=== PATIENT | male | born 1980 | race Two or more races ===

== ENCOUNTER 2016-12-20 07:40 | Emergency (ER) | payer MEDICAID ==
[2016-12-20 07:46] VITALS: TEMP 97.3
[2016-12-20] MEDS ORDERED: PROMETHAZINE HCL 25 MG/ML INJ IVP ONE (07:52)
[2016-12-20] MEDS ORDERED: NS 1,000 ML IV ONE (07:52)
[2016-12-20] MEDS ORDERED: HYDROmorphONE/DILAUDID 1 MG/ML SYR IVP ONE (07:52)
--- NOTE | 2016-12-20 07:55 | EDPHY ---
H & P Stated Complaint: N/V since early AM. LUQ pain Time Seen by Provider: 12/20/16 07:47 HPI/ROS: CHIEF COMPLAINT: Acute exacerbation of chronic cyclic vomiting syndrome HISTORY OF PRESENT ILLNESS: The patient presents to the ED after he developed an acute exacerbation of chronic cyclic vomiting. The patient has been struggling with this condition for years. He reportedly has had an extensive GI workup in the past. The patient does report to me a history of heavy recreational marijuana use. The patient reports that he has abstain from using marijuana for years at a time in the past and not appreciated a significant decline in his symptoms of cyclic vomiting. The patient denies any fever, melena, upper respiratory symptoms or additional acute complaints. The patient takes no regular [id number] medications. The patient reports his symptoms are moderate to severe in nature. REVIEW OF SYSTEMS: A comprehensive 10 point review of systems is otherwise negative aside from elements mentioned in the history of present illness. Source: Patient Exam Limitations: No limitations - Personal History Current Tetanus/Diphtheria Vaccine: Yes Current Tetanus Diphtheria and Acellular Pertussis (TDAP): Yes Tetanus Vaccine Date: < 10 YEARS - Medical/Surgical History Hx Asthma: No Hx Chronic Respiratory Disease: No Hx Diabetes: No Hx Cardiac Disease: No Hx Renal Disease: No Hx Cirrhosis: No Hx Alcoholism: No Hx HIV/AIDS: No Hx Splenectomy or Spleen Trauma: No Other PMH: pmh: denies. psh: rhinoplasty - Social History Smoking Status: Current some day smoker - Physical Exam Exam: General Appearance: Alert, diaphoretic, mild distress secondary to retching Eyes: Pupils equal and round no pallor or injection ENT, Mouth: Mucous membranes moist Respiratory: There are no retractions, lungs are clear to auscultation Cardiovascular: Regular rate and rhythm Gastrointestinal: Minimal epigastric tenderness, no peritoneal signs Neurological: A&O, normal motor function, normal sensory exam, normal cranial nerves Skin: Warm and dry, no rashes Musculoskeletal: Neck is supple nontender Extremities: symmetrical, full range of motion Psychiatric: Patient is oriented X 3, there is no agitation Constitutional: Initial Vital Signs Temperature (C) 36.3 C 12/20/16 07:43 Heart Rate 63 12/20/16 07:43 Respiratory Rate 17 12/20/16 07:43 Blood Pressure 140/88 H 12/20/16 07:43 O2 Sat (%) 99 12/20/16 07:43 O2 Delivery Mode Room Air Allergies/Adverse Reactions: No Known Allergies Allergy (Unverified 08/17/16 07:20) Home Medications: Medication Instructions Recorded Ondansetron Odt [Zofran Odt] 4 mg PO Q4PRN PRN #20 tab 12/20/16 Medical Decision Making ED Course/Re-evaluation: The patient had an IV established. He received a L of normal saline. He received 1 mg of IV Dilaudid and 12.5 mg of IV Phenergan. The patient received IV fluid rehydration for active vomiting and volume depletion I reviewed the patient's past medical records including his 3 ED visits from August. I re-evaluated the patient at 9:00 a.m. he reports his symptoms have markedly improved. He is no longer vomiting. His abdominal examination remains benign. His laboratories studies are reviewed and I appreciate no significant abnormalities. The patient is comfortable being discharged home with a prescription for Zofran. Differential Diagnosis: Differential diagnosis considered includes acute abdominal pain, cyclic vomiting syndrome, dehydration, metabolic abnormality - Data Points Laboratory Results: Laboratory Results 12/20/16 08:00 12/20/16 08:00 12/20/16 12/20/16 08:00 08:00 WBC 10.04 10^3/uL H 10^3/uL (3.80-9.50) RBC 5.40 10^6/uL 10^6/uL (4.40-6.38) Hgb 17.1 g/dL g/dL (13.7-17.5) Hct 48.9 % % (40.0-51.0) MCV 90.6 fL fL (81.5-99.8) MCH 31.7 pg pg (27.9-34.1) MCHC 35.0 g/dL g/dL (32.4-36.7) RDW 12.3 % % (11.5-15.2) Plt Count 281 10^3/uL 10^3/uL (150-400) MPV 11.3 fL fL (8.7-11.7) Neut % (Auto) 65.6 % % (39.3-74.2) Lymph % (Auto) 23.1 % % (15.0-45.0) [place] % (Auto) 5.4 % % (4.5-13.0) Eos % (Auto) 4.3 % % (0.6-7.6) Baso % (Auto) 1.2 % % (0.3-1.7) Nucleat RBC Rel Count 0.0 % % (0.0-0.2) Absolute Neuts (auto) 6.59 10^3/uL H 10^3/uL (1.70-6.50) Absolute Lymphs (auto) 2.32 10^3/uL 10^3/uL (1.00-3.00) Absolute Monos (auto) 0.54 10^3/uL 10^3/uL (0.30-0.80) Absolute Eos (auto) 0.43 10^3/uL H 10^3/uL (0.03-0.40) Absolute Basos (auto) 0.12 10^3/uL H 10^3/uL (0.02-0.10) Absolute Nucleated RBC 0.00 10^3/uL 10^3/uL (0-0.01) Immature Gran % 0.4 % % (0.0-1.1) Immature Gran # 0.04 10^3/uL 10^3/uL (0.00-0.10) Sodium 142 mEq/L mEq/L (134-144) Potassium 5.2 mEq/L mEq/L (3.5-5.2) Chloride 107 mEq/L mEq/L (97-110) Carbon Dioxide 20 mEq/l L mEq/l (22-31) Anion Gap 15 mEq/L mEq/L (8-16) BUN 18 mg/dL mg/dL (7-23) Creatinine 1.1 mg/dL mg/dL (0.7-1.3) Estimated GFR > 60 Glucose 112 mg/dL H mg/dL (70-100) Calcium 10.6 mg/dL H mg/dL (8.5-10.4) Lipase 302.0 IU/L H IU/L (23-300) Medications Given: Discontinued Medications Hydromorphone HCl (Dilaudid) 1 mg IVP EDNOW ONE Stop: 12/20/16 07:53 Last Admin: 12/20/16 08:03 Dose: 1 mg Sodium Chloride (Ns) 1,000 mls @ 0 mls/hr IV ONCE ONE PRN Reason: Wide Open Stop: 12/20/16 07:53 Last Admin: 12/20/16 08:03 Dose: 1,000 mls Promethazine HCl (Phenergan) 12.5 mg IVP EDNOW ONE Stop: 12/20/16 07:53 Last Admin: 12/20/16 08:10 Dose: Not Given Departure - Departure Disposition: Home, Routine, Self-Care Clinical Impression: Cyclic vomiting syndrome Condition: Good Instructions: Acute Nausea and Vomiting (ED) Additional Instructions: 1. Please return to the ED for worsening symptoms, severe pain the other concerns. 2. Please use Zofran as needed for nausea. Referrals: HEIDY MARQUEZ [Other] - As per Instructions
[2016-12-20 08:05] LABS: % IMMATURE GRANULYOCYTES 0.4 % (0.0-1.1); ABSOLUTE IMMATURE GRANULOCYTES 0.04 10^3/uL (0.00-0.10); ADD DIFF? NO; ADD MORPH? NO; ADD SCAN? NO; ATYPICAL LYMPHOCYTE FLAG 0 (0-99); FRAGMENT RBC FLAG 0 (0-99); HEMATOCRIT 48.9 % (40.0-51.0); HEMOGLOBIN 17.1 g/dL (13.7-17.5); LEFT SHIFT FLG 0 (0-99); LIPEMIA HEMOLYSIS FLAG 90 (0-99); MEAN CELL HEMOGLOBIN 31.7 pg (27.9-34.1); MEAN CELL VOLUME 90.6 fL (81.5-99.8); MEAN PLATELET VOLUME 11.3 fL (8.7-11.7); PLATELET CLUMPS FLAG 0 (0-99); PLATELET COUNT 281 10^3/uL (150-400); RED CELL DISTRIBUTION WIDTH 12.3 % (11.5-15.2)
[2016-12-20 08:25] LABS: ANION GAP 15 mEq/L (8-16); CALCIUM 10.6 mg/dL (8.5-10.4); CARBON DIOXIDE 20 mEq/l (22-31); CHLORIDE 107 mEq/L (97-110); CREATININE 1.1 mg/dL (0.7-1.3); GLOMERULAR FILTRATION RATE > 60; GLUCOSE 112 mg/dL (70-100); POTASSIUM 5.2 mEq/L (3.5-5.2); SODIUM 142 mEq/L (134-144)
[2016-12-20 08:39] VITALS: RESP 14
[2016-12-20 09:25] VITALS: BP 120/75; PULSE 74; O2SAT 98
== END 2016-12-20 09:24 | disposition home or self-care (01) ==
DX: G43.A0 Cyclical vomiting, in migraine, not intractable (principal); F17.200 Nicotine dependence, unspecified, uncomplicated
CPT/HCPCS: 96374; J1170

== ENCOUNTER 2016-12-21 06:28 | Emergency (ER) | payer MEDICAID ==
[2016-12-21] MEDS ORDERED: ONDANSETRON 4 MG/2 ML VIAL ONE (06:48)
[2016-12-21] MEDS ORDERED: NS 1,000 ML IV ONE (06:57)
[2016-12-21] MEDS ORDERED: HALOPERIDOL LACT 5 MG/ML INJ ONE (06:57)
[2016-12-21] MEDS ORDERED: ONDANSETRON 4 MG/2 ML VIAL IVP ONE (06:57)
[2016-12-21] MEDS ORDERED: HALOPERIDOL LACT 5 MG/ML INJ IVP ONE (06:57)
--- NOTE | 2016-12-21 06:57 | EDPHY ---
H & P Stated Complaint: abd pain cramping vomiting diarrhea Time Seen by Provider: 12/21/16 06:56 HPI/ROS: Chief complaint: Nausea, vomiting, abdominal pain HPI: 36-year-old male with a history of chronic cyclic vomiting syndrome presenting with nausea and vomiting this morning. Patient was seen in the emergency department yesterday and got some relief the symptoms came back again this morning. He has a history of chronic marijuana use but does not feel that this is contributing to his problem. He has seen multiple GI doctors and had an extensive workup in the past which has been unremarkable. Denies any fevers or chills. No blood or melena. No fevers or chills. No chest pain or shortness of breath. Symptoms are consistent with his prior episodes. ROS: 10 point Review of Systems is negative except as noted in the HPI. Past medical history: Cyclic vomiting syndrome Medications: None Allergies: No known drug allergies Social history: Does not smoke, does not drink alcohol, does use marijuana frequently Physical exam: Gen: Awake, Alert, No Distress HEENT: Nose: no rhinorrhea Eyes: PERRLA, EOMI Mouth: Moist mucosa Neck: Supple, no JVD Chest: nontender, lungs clear to auscultation Heart: S1, S2 normal, no murmur Abd: Soft, mild diffuse tenderness, no guarding Back: no CVA tenderness, no midline tenderness Ext: no edema, non-tender Skin: no rash Neuro: CN II-XII intact, Sensation grossly intact, Strength 5/5 in bilateral upper and lower extremities - Personal History Current Tetanus/Diphtheria Vaccine: Yes Current Tetanus Diphtheria and Acellular Pertussis (TDAP): Yes Tetanus Vaccine Date: < 10 YEARS - Medical/Surgical History Hx Asthma: No Hx Chronic Respiratory Disease: No Hx Diabetes: No Hx Cardiac Disease: No Hx Renal Disease: No Hx Cirrhosis: No Hx Alcoholism: No Hx HIV/AIDS: No Hx Splenectomy or Spleen Trauma: No Other PMH: pmh: denies. psh: rhinoplasty - Social History Smoking Status: Current some day smoker Constitutional: Initial Vital Signs Heart Rate 60 12/21/16 06:42 Respiratory Rate 24 H 12/21/16 06:42 Blood Pressure 140/99 H 12/21/16 06:42 O2 Sat (%) 99 12/21/16 06:42 O2 Delivery Mode Room Air Allergies/Adverse Reactions: No Known Allergies Allergy (Unverified 08/17/16 07:20) Home Medications: Medication Instructions Recorded Ondansetron Odt [Zofran Odt] 4 mg PO Q4PRN PRN #20 tab 12/20/16 Medical Decision Making ED Course/Re-evaluation: 28-year-old male with a known sick with vomiting syndrome, seen here yesterday. At that time he received Dilaudid and Phenergan. I will give him some Zofran and some haloperidol and IV fluids here and reassess. I he is hesitant to try Haldol and states that he has not had it worked for him in the past. I had a long discussion with him regarding the ineffectiveness of narcotics for chronic or recurring pain syndromes. I have also discussed that the narcotics can actually and to his nausea. He is in agreement to try the Haldol and Zofran for now and then I will reassess. Patient reports no relief with the Haldol and Zofran. I will give him 50 mcg of fentanyl now and reassess. 0840 patient is feeling significantly improved. He is up and ambulating unassisted to the bathroom. Pain is gone. No further vomiting. He is asking to go home at this time. Will discharge him with the go pack of nausea medications. Instructions to discontinue marijuana use and follow up with primary care physician. - Data Points Laboratory Results: Laboratory Results 12/21/16 06:53 12/21/16 06:53 12/21/16 12/21/16 06:53 06:53 WBC 8.64 10^3/uL 10^3/uL (3.80-9.50) RBC 5.22 10^6/uL 10^6/uL (4.40-6.38) Hgb 16.2 g/dL g/dL (13.7-17.5) Hct 46.1 % % (40.0-51.0) MCV 88.3 fL fL (81.5-99.8) MCH 31.0 pg pg (27.9-34.1) MCHC 35.1 g/dL g/dL (32.4-36.7) RDW 12.3 % % (11.5-15.2) Plt Count 283 10^3/uL 10^3/uL (150-400) MPV 11.3 fL fL (8.7-11.7) Neut % (Auto) 58.7 % % (39.3-74.2) Lymph % (Auto) 28.5 % % (15.0-45.0) [place] % (Auto) 7.4 % % (4.5-13.0) Eos % (Auto) 4.1 % % (0.6-7.6) Baso % (Auto) 1.0 % % (0.3-1.7) Nucleat RBC Rel Count 0.0 % % (0.0-0.2) Absolute Neuts (auto) 5.07 10^3/uL 10^3/uL (1.70-6.50) Absolute Lymphs (auto) 2.46 10^3/uL 10^3/uL (1.00-3.00) Absolute Monos (auto) 0.64 10^3/uL 10^3/uL (0.30-0.80) Absolute Eos (auto) 0.35 10^3/uL 10^3/uL (0.03-0.40) Absolute Basos (auto) 0.09 10^3/uL 10^3/uL (0.02-0.10) Absolute Nucleated RBC 0.00 10^3/uL 10^3/uL (0-0.01) Immature Gran % 0.3 % % (0.0-1.1) Immature Gran # 0.03 10^3/uL 10^3/uL (0.00-0.10) Sodium 142 mEq/L mEq/L (134-144) Potassium 4.5 mEq/L mEq/L (3.5-5.2) Chloride 107 mEq/L mEq/L (97-110) Carbon Dioxide 19 mEq/l L mEq/l (22-31) Anion Gap 16 mEq/L mEq/L (8-16) BUN 21 mg/dL mg/dL (7-23) Creatinine 1.0 mg/dL mg/dL (0.7-1.3) Estimated GFR > 60 Glucose 110 mg/dL H mg/dL (70-100) Calcium 10.1 mg/dL mg/dL (8.5-10.4) Total Bilirubin 0.6 mg/dL mg/dL (0.1-1.4) Conjugated Bilirubin 0.3 mg/dL mg/dL (0.0-0.5) Unconjugated Bilirubin 0.3 mg/dL mg/dL (0.0-1.1) AST 35 IU/L IU/L (17-59) ALT 37 IU/L IU/L (21-72) Alkaline Phosphatase 96 IU/L IU/L (38-126) Total Protein 7.9 g/dL g/dL (6.3-8.2) Albumin 5.0 g/dL g/dL (3.5-5.0) Lipase 444.0 IU/L H IU/L (23-300) Medications Given: Discontinued Medications Fentanyl (Sublimaze) 50 mcg IVP EDNOW ONE Stop: 12/21/16 07:36 Last Admin: 12/21/16 07:43 Dose: 50 mcg Haloperidol Lactate (Haldol Injection) 5 mg IVP EDNOW ONE Stop: 12/21/16 06:58 Last Admin: 12/21/16 07:00 Dose: 5 mg Sodium Chloride (Ns) 1,000 mls @ 0 mls/hr IV ONCE ONE PRN Reason: Wide Open Stop: 12/21/16 06:58 Last Admin: 12/21/16 07:00 Dose: 1,000 mls Ondansetron HCl (Zofran) 4 mg IVP EDNOW ONE Stop: 12/21/16 06:58 Last Admin: 12/21/16 07:00 Dose: 4 mg Departure - Departure Disposition: Home, Routine, Self-Care Clinical Impression: Cyclic vomiting syndrome Condition: Good Instructions: Abdominal Pain (ED), Acute Nausea and Vomiting (ED) Additional Instructions: Please consider discontinuing using marijuana as I suspect this is causing your symptoms. It may take several weeks after you stop using marijuana for your symptoms to go away. Please follow up with your doctor, Dr. Love, in 3-4 days if symptoms are not improving. Referrals: NONE *PRIMARY CARE P,. [Primary Care Provider] - As per Instructions Daryn Love PA [Physician Hog Scalder] - As per Instructions
[2016-12-21 07:09] LABS: % IMMATURE GRANULYOCYTES 0.3 % (0.0-1.1); ABSOLUTE IMMATURE GRANULOCYTES 0.03 10^3/uL (0.00-0.10); ADD DIFF? NO; ADD MORPH? NO; ADD SCAN? NO; ATYPICAL LYMPHOCYTE FLAG 0 (0-99); FRAGMENT RBC FLAG 0 (0-99); HEMATOCRIT 46.1 % (40.0-51.0); HEMOGLOBIN 16.2 g/dL (13.7-17.5); LEFT SHIFT FLG 0 (0-99); LIPEMIA HEMOLYSIS FLAG 90 (0-99); MEAN CELL HEMOGLOBIN CONCENTR. 35.1 g/dL (32.4-36.7); MEAN CELL VOLUME 88.3 fL (81.5-99.8); MEAN PLATELET VOLUME 11.3 fL (8.7-11.7); PLATELET CLUMPS FLAG 0 (0-99); PLATELET COUNT 283 10^3/uL (150-400); RED BLOOD CELL COUNT 5.22 10^6/uL (4.40-6.38); RED CELL DISTRIBUTION WIDTH 12.3 % (11.5-15.2)
[2016-12-21] MEDS ORDERED: fentaNYL 100 MCG/2 ML INJ IVP ONE (07:35)
[2016-12-21 07:55] LABS: ALANINE AMINOTRANSFERASE 37 IU/L (21-72); ALKALINE PHOSPHATASE 96 IU/L (38-126); ANION GAP 16 mEq/L (8-16); ASPARTATE AMINOTRANSFERASE 35 IU/L (17-59); BILIRUBIN,TOTAL 0.6 mg/dL (0.1-1.4); BILIRUBIN-CONJUGATED 0.3 mg/dL (0.0-0.5); BILIRUBIN-UNCONJUGATED 0.3 mg/dL (0.0-1.1); CALCIUM 10.1 mg/dL (8.5-10.4); CARBON DIOXIDE 19 mEq/l (22-31); CHLORIDE 107 mEq/L (97-110); GLOMERULAR FILTRATION RATE > 60; GLUCOSE 110 mg/dL (70-100); POTASSIUM 4.5 mEq/L (3.5-5.2); SODIUM 142 mEq/L (134-144); TOTAL PROTEIN 7.9 g/dL (6.3-8.2)
[2016-12-21 09:12] VITALS: BP 121/60; PULSE 62; RESP 18; TEMP 98.8; O2SAT 97
== END 2016-12-21 09:11 | disposition home or self-care (01) ==
DX: G43.A0 Cyclical vomiting, in migraine, not intractable (principal); F17.200 Nicotine dependence, unspecified, uncomplicated
CPT/HCPCS: 96374; J2405; J3010

== ENCOUNTER 2016-12-22 07:48 | Emergency (ER) | payer MEDICAID ==
[2016-12-22 07:52] VITALS: TEMP 97.3
[2016-12-22] MEDS ORDERED: NS 1,000 ML IV ONE (08:10)
[2016-12-22] MEDS ORDERED: METOCLOPRAMIDE 10 MG/2 ML VIAL IVP ONE (08:10)
[2016-12-22] MEDS ORDERED: ONDANSETRON 4 MG/2 ML VIAL IVP ONE (08:10)
[2016-12-22] MEDS ORDERED: MAALOX/LIDO/HYOSC GI COCKTAIL 55 ML BOTTLE PO ONE (08:11)
[2016-12-22] MEDS ORDERED: PANTOPRAZOLE SODIUM 40 MG in NS 100 ML IV ONE (08:12)
[2016-12-22 08:29] LABS: ALANINE AMINOTRANSFERASE 40 IU/L (21-72); ALBUMIN 5.2 g/dL (3.5-5.0); ALKALINE PHOSPHATASE 94 IU/L (38-126); ANION GAP 18 mEq/L (8-16); ASPARTATE AMINOTRANSFERASE 36 IU/L (17-59); BILIRUBIN,TOTAL 1.4 mg/dL (0.1-1.4); BILIRUBIN-CONJUGATED 0.4 mg/dL (0.0-0.5); CALCIUM 10.3 mg/dL (8.5-10.4); CARBON DIOXIDE 16 mEq/l (22-31); CHLORIDE 107 mEq/L (97-110); GLOMERULAR FILTRATION RATE > 60; GLUCOSE 122 mg/dL (70-100); SODIUM 141 mEq/L (134-144); TOTAL PROTEIN 8.6 g/dL (6.3-8.2)
[2016-12-22] MEDS ORDERED: SCOPOLAMINE HYDROBROMIDE 1.5 MG PATCH TD ONE (08:37)
--- NOTE | 2016-12-22 08:37 | EDPHY ---
H & P Stated Complaint: HERE THE PAST TWO DAYS WITH THE SAME C/O- ABD PAIN, N/V HPI/ROS: CHIEF COMPLAINT: nausea vomiting, abdominal pain HISTORY OF PRESENT ILLNESS: patient has a week-long history of nausea, vomiting and abdominal pain. This is mild to moderate at times, currently severe. Primarily left upper quadrant and epigastrium. Worse with intake by mouth. Minimal improvement with Zofran he has been prescribed on his 2 previous visits. No fever chills. No bloody stools or emesis. No constipation. Does have history of marijuana use but reports decrease use recently. No diagnosis of peptic ulcer disease despite being seen by GI physicians without any other formal diagnosis. No other associated complaints or modifying factors. PREVIOUS ABDOMINAL SURGERIES/DIAGNOSES: Sickle vomiting, no formal diagnosis NPO: last night REVIEW OF SYSTEMS: Ten systems reviewed and are negative unless otherwise noted in the HPI EXAMINATION: General Appearance: Alert, no distress, actively dry heaving Head: normocephalic, atraumatic Eyes: Pupils equal and round, no conjunctival pallor or injection ENT, Mouth: Mucous membranes moist. No erythema or edema. Neck: Normal inspection, supple, non-tender Respiratory: Lungs are clear to auscultation . No wheezing, rhonchi or crackles. Cardiovascular: Regular rate and rhythm . No murmur. Pulses intact distally. Gastrointestinal: Abdomen is soft . Tender in the epigastrium left upper quadrant. No tympany. No rigidity. Nonacute abdomen. Neurological: A&O, nonfocal, Strength symmetric in all limbs Skin: Warm and dry, no rash Extremities: Nontender, no pedal edema Psychiatric: Mood and affect normal DIFFERENTIAL DIAGNOSES: Including but not limited to cycling vomiting, gastritis, pancreatitis, THC gastritis, enteritis, duodenitis, PUD MDM: 8:20 a.m. cyclical abdominal pain, nausea and vomiting consistent with gastritis. Possibly marijuana related. The patient has dry heaving in the room complaining of epigastric and left upper quadrant pain. He reports having a CT scan less than a month ago at outside facility, and we will attempt to obtain that report. He has been here the last 2 days with mildly elevated lipase. Discharged home with Zofran and was tolerating symptoms for a while, but overnight and this morning worsen. IV fluid and multiple medications have been ordered. 9:30 a.m. cyclical vomiting is likely cannabinoid hyperemesis syndrome. he did have an episode of anxiety reaction here, thus we treated with Ativan which helped both of his scenarios. He was feeling significantly better at time of discharge home. No longer vomiting. He was discharged home with ranitidine and Ativan. He is to follow up with his stave machine tender and her primary care physician for further care. He is to discontinue all use of marijuana until follow-up and resolution of symptoms. Patient verbalizes understanding of this, answered all his questions, he was discharged home in stable condition. ED Precautions: Worsening pain. Fever. Bloody stools. Bloody emesis. Constipation or diarrhea. SUPERVISION: This patient was independently evaluated without the aide of supervising physician. Source: Patient, Family, Old records Exam Limitations: No limitations - Personal History Current Tetanus/Diphtheria Vaccine: Yes Current Tetanus Diphtheria and Acellular Pertussis (TDAP): Yes Tetanus Vaccine Date: < 10 YEARS - Medical/Surgical History Hx Asthma: No Hx Chronic Respiratory Disease: No Hx Diabetes: No Hx Cardiac Disease: No Hx Renal Disease: No Hx Cirrhosis: No Hx Alcoholism: No Hx HIV/AIDS: No Hx Splenectomy or Spleen Trauma: No Other PMH: pmh: cyclic vomiting syndrome. psh: rhinoplasty - Social History Smoking Status: Current some day smoker Constitutional: Initial Vital Signs Temperature (C) 97.3 F 12/22/16 07:49 Heart Rate 60 12/22/16 07:49 Respiratory Rate 20 12/22/16 07:49 Blood Pressure 156/87 H 12/22/16 07:49 O2 Sat (%) 96 12/22/16 07:49 O2 Delivery Mode Room Air Allergies/Adverse Reactions: No Known Allergies Allergy (Verified 12/22/16 08:04) Home Medications: Medication Instructions Recorded Ondansetron Odt [Zofran Odt] 4 mg PO Q4PRN PRN #20 tab 12/20/16 Acetaminophen/Codeine 300/30Mg 1 each PO Q6 PRN #10 tab 12/22/16 [Tylenol #3 (*)] Lorazepam [Ativan 2 mg tab] 2 mg PO Q8 PRN #9 tablet 12/22/16 Ranitidine HCl 300 mg PO DAILY #28 capsule 12/22/16 Medical Decision Making - Data Points Laboratory Results: Laboratory Results 12/22/16 08:10 12/22/16 08:10 Sodium 141 mEq/L mEq/L (134-144) Potassium 4.0 mEq/L mEq/L (3.5-5.2) Chloride 107 mEq/L mEq/L (97-110) Carbon Dioxide 16 mEq/l L mEq/l (22-31) Anion Gap 18 mEq/L H mEq/L (8-16) BUN 11 mg/dL mg/dL (7-23) Creatinine 1.0 mg/dL mg/dL (0.7-1.3) Estimated GFR > 60 Glucose 122 mg/dL H mg/dL (70-100) Calcium 10.3 mg/dL mg/dL (8.5-10.4) Total Bilirubin 1.4 mg/dL D mg/dL (0.1-1.4) Conjugated Bilirubin 0.4 mg/dL mg/dL (0.0-0.5) Unconjugated Bilirubin 1.0 mg/dL mg/dL (0.0-1.1) AST 36 IU/L IU/L (17-59) ALT 40 IU/L IU/L (21-72) Alkaline Phosphatase 94 IU/L IU/L (38-126) Total Protein 8.6 g/dL H g/dL (6.3-8.2) Albumin 5.2 g/dL H g/dL (3.5-5.0) Lipase 157.0 IU/L IU/L (23-300) Medications Given: Discontinued Medications Diphenhydramine HCl (Benadryl Injection) 50 mg IVP EDNOW ONE Stop: 12/22/16 08:11 Last Admin: 12/22/16 08:34 Dose: Not Given Fentanyl (Sublimaze) 100 mcg IVP EDNOW ONE Stop: 12/22/16 09:32 Last Admin: 12/22/16 09:39 Dose: 100 mcg Sodium Chloride (Ns) 1,000 mls @ 0 mls/hr IV ONCE ONE PRN Reason: Wide Open Stop: 12/22/16 08:11 Last Admin: 12/22/16 08:10 Dose: 1,000 mls Pantoprazole Sodium 40 mg/ (Sodium Chloride) 100 mls @ 200 mls/hr IV EDNOW ONE Stop: 12/22/16 08:41 Last Admin: 12/22/16 08:25 Dose: 100 mls Lorazepam (Ativan Injection) 1 mg IVP EDNOW ONE Stop: 12/22/16 08:47 Last Admin: 12/22/16 08:51 Dose: 1 mg Metoclopramide HCl (Reglan Injection) 10 mg IVP EDNOW ONE Stop: 12/22/16 08:11 Last Admin: 12/22/16 08:20 Dose: 10 mg Miscellaneous Medication (Gi Cocktail) 55 ml PO EDNOW ONE Stop: 12/22/16 08:12 Last Admin: 12/22/16 08:35 Dose: 55 ml Ondansetron HCl (Zofran) 4 mg IVP EDNOW ONE Stop: 12/22/16 08:11 Last Admin: 12/22/16 08:34 Dose: 4 mg Scopolamine HBr (Transderm-Scop) 1.5 mg TD Q24H ONE Stop: 12/22/16 08:38 Last Admin: 12/22/16 09:01 Dose: 1.5 mg Departure - Departure Disposition: Home, Routine, Self-Care Clinical Impression: Cannabinoid hyperemesis syndrome Condition: Good Instructions: Gastritis (ED), Cannabis Abuse (ED) Additional Instructions: Discontinue marijuana use. Medications as prescribed. Return to stave machine tender for definitive care Referrals: HEIDY MARQUEZ [Other] - As per Instructions Iván Suárez MD [Medical Doctor] - As per Instructions Prescriptions: Acetaminophen/Codeine 300/30Mg [Tylenol #3 (*)] 1 each PO Q6 PRN #10 tab PRN Reason: Pain, Mild Lorazepam [Ativan 2 mg tab] 2 mg PO Q8 PRN #9 tablet PRN Reason: Nausea/Vomiting, Use 2nd Ranitidine HCl 300 mg PO DAILY #28 capsule
[2016-12-22] MEDS ORDERED: LORazepam 2 MG/ML INJ IVP ONE (08:46)
[2016-12-22] MEDS ORDERED: fentaNYL 100 MCG/2 ML INJ IVP ONE (09:31)
[2016-12-22 10:14] VITALS: BP 132/76; PULSE 64; RESP 16; O2SAT 98
[2016-12-23] MEDS ORDERED: PATCH REMOVAL 1 EA PATCH TD ONE (08:37)
== END 2016-12-22 10:09 | disposition home or self-care (01) ==
DX: R11.2 Nausea with vomiting, unspecified (principal); F12.188 Cannabis abuse with other cannabis-induced disorder
CPT/HCPCS: 96365; J1200; J2405; J2765; J3010

== ENCOUNTER 2016-12-24 06:36 | Emergency (ER) | payer MEDICAID ==
[2016-12-24] MEDS ORDERED: ONDANSETRON 4 MG/2 ML VIAL ONE (06:46)
--- NOTE | 2016-12-24 06:52 | EDPHY ---
H & P Stated Complaint: ULQ abdominal pain continued from previous visit, NV Time Seen by Provider: 12/24/16 06:50 - Personal History Current Tetanus/Diphtheria Vaccine: Yes Current Tetanus Diphtheria and Acellular Pertussis (TDAP): Yes Tetanus Vaccine Date: < 10 YEARS - Medical/Surgical History Hx Asthma: No Hx Chronic Respiratory Disease: No Hx Diabetes: No Hx Cardiac Disease: No Hx Renal Disease: No Hx Cirrhosis: No Hx Alcoholism: No Hx HIV/AIDS: No Hx Splenectomy or Spleen Trauma: No Other PMH: pmh: cyclic vomiting syndrome. psh: rhinoplasty - Social History Smoking Status: Current some day smoker Constitutional: Initial Vital Signs Temperature (C) 36.4 C 12/24/16 06:39 Heart Rate 66 12/24/16 06:39 Respiratory Rate 20 12/24/16 06:39 Blood Pressure 118/83 H 12/24/16 06:39 O2 Sat (%) 100 12/24/16 06:39 O2 Delivery Mode Room Air Allergies/Adverse Reactions: No Known Allergies Allergy (Verified 12/22/16 08:04) Home Medications: Medication Instructions Recorded Ondansetron Odt [Zofran Odt] 4 mg PO Q4PRN PRN #20 tab 12/20/16 Medical Decision Making ED Course/Re-evaluation: CHIEF COMPLAINT: Cyclic vomiting HISTORY OF PRESENT ILLNESS: The patient is a 36 y/o male, with a history of marijuana-induced cyclic vomiting, complaining of vomiting onset about 5 days ago. This is his 4th ED visit in the last 5 days for this complaint. During his recent visits he has received combinations of Zofran, Phenergan, Dilaudid, and Ativan without lasting relief. He reports he's had extensive workups for this in the past. He denies melena, hematemesis, or fever. REVIEW OF SYSTEMS: A 10 point review of systems was performed and is negative with the exception of the elements mentioned in the history of present illness. PHYSICAL EXAM: HR, BP, O2 Sat, RR. Temp noted General Appearance: Alert, well hydrated, appropriate, and non-toxic appearing. Head: Atraumatic without scalp tenderness or obvious injury Eyes: Pupils equal, round, reactive to light and accommodation, EOMI, no trauma , no injection. Ears: Clear bilaterally, no perforation, normal landmarks Nose: Atraumatic, no rhinorrhea, clear. Throat: There is no erythema or exudates, no lesions, normal tonsils, mucus membranes moist. Neck: Supple, nontender, no lymphadenopathy. Respiratory: No retractions, no distress, no wheezes, and no accessory muscle use. Lungs are clear to auscultation bilaterally. Cardiovascular: Regular rate and rhythm, no murmurs, rubs, or gallops. Good capillary refill all extremities. Gastrointestinal: Abdomen is soft, mild diffuse tenderness, non-distended, no masses, no rebound, no guarding, no peritoneal signs. Musculoskeletal: Normal active ROM of all extremities, atraumatic. Neurological: Alert, appropriate, and interactive. The patient has normal DTRs and non-focal cranial nerves, motor, sensory, and cerebellar exam. Skin: No rashes, good turgor, no nodules on palpation. Past medical history: Cyclic vomiting Past surgical history: Rhinoplasty Family history: Noncontributory Social history: Heavy marijuana use, Prior medical records reviewed including ED visits from 12/20/16 to 12/22/16. DIFFERENTIAL DIAGNOSIS: The differential diagnosis for the patient's nausea and vomiting included but was not limited to cyclic vomiting, gastroenteritis, gastritis, appendicitis, and medication side effect. MEDICAL DECISION MAKING: This is a 36 y/o male who presents with an ongoing episode of cyclic vomiting for almost a week. His abdomen is mildly diffusely tender and he is not actively vomiting on exam. During his 4 previous ED visits this week for his symptoms he received antiemetics, narcotics, and benzos without lasting alleviation. Plan for 100mg IM Ketamine for symptoms 0725: Reassessed patient. He reports his vomiting and abdominal pain has completely resolved. 0808: "My stomach is feeling great." Currently tolerating PO water without issue. He feels "loopy" from the Ketamine, but feels his mind is getting more clear. He feels ready for discharge home. His is on her way to pick him up. We discussed return precautions and I advised him to reduce marijuana use. He agrees with plan for discharge. - Data Points Medications Given: Discontinued Medications Ketamine HCl (Ketamine) 100 mg IM EDNOW ONE Stop: 12/24/16 07:00 Last Admin: 12/24/16 07:12 Dose: 100 mg Departure - Departure Disposition: Home, Routine, Self-Care Clinical Impression: Cyclic vomiting syndrome Qualifiers: Vomiting Intractability: non-intractable Nausea presence: with nausea Qualified Code(s): G43.A0 - Cyclical vomiting, not intractable Condition: Good Instructions: Acute Nausea and Vomiting (ED) Additional Instructions: Discontinue marijuana use. Follow up with your primary care provider this week. Referrals: [facility],. [Clinic] - As per Instructions Report Scribed for: Jim Churchill Report Scribed by: Asuncion Santacruz Date of Report: 12/24/16 Time of Report: 06:59
[2016-12-24] MEDS ORDERED: KETAMINE 500 MG/10 ML VIAL IM ONE (06:59)
[2016-12-24 09:15] VITALS: BP 143/60; PULSE 90; RESP 18; TEMP 98.4; O2SAT 96
== END 2016-12-24 09:13 | disposition home or self-care (01) ==
DX: G43.A0 Cyclical vomiting, in migraine, not intractable (principal); F17.200 Nicotine dependence, unspecified, uncomplicated
CPT/HCPCS: J2405

== ENCOUNTER 2016-12-26 07:46 | Emergency (ER) | payer MEDICAID ==
--- NOTE | 2016-12-26 08:27 | EDPHY ---
H & P Time Seen by Provider: 12/26/16 08:27 HPI/ROS: CHIEF COMPLAINT: Nausea and vomiting HISTORY OF PRESENT ILLNESS: Patient is had multiple episodes over the past week requiring emergency department visit. He feels this is an acute exacerbation of his cyclic vomiting syndrome. 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 Symptoms are severe and associated with multiple episodes of nausea and vomiting and moderate to severe abdominal cramping. Identical to previous episodes. Worse with food. REVIEW OF SYSTEMS: Eye: no change in vision ENT: no sore throat Cardiac: no chest pain or syncope Pulmonary: no cough or SOB Abdomen: HPI Musculoskeletal: no back pain Skin: no rash Neuro: no headache Constitutional: no fever : no urinary symptoms A comprehensive 10 point review of systems is otherwise negative aside from elements mentioned in the history of present illness. PAST MEDICAL HISTORY: Cyclic vomiting syndrome with emergency visits December 2007 24 13 for the same. Social history: Increased stress, , his drove him here. General Appearance: Alert and conversant, cooperative. Eyes: No scleral icterus. ENT, Mouth: Slightly dry mucous membranes Respiratory: Normal respiratory effort, breath sounds equal, lungs are clear to auscultation. Cardiovascular: Regular rate and rhythm. Gastrointestinal: Abdomen is soft and non tender. Neurological: Alert and oriented x3. Normally conversant. Face symmetric, normal movement and sensation in all extremities. Skin: Warm and dry, no rashes. Musculoskeletal: No peripheral edema and no joint swelling. Psychiatric: Moderate anxiety. Emergency Department course/MDM: IV normal saline 2 L for vomiting, ketamine 25 mg IV, Haldol 5 mg IV, Ativan 1 mg IV. Symptoms identical to multiple previous episodes, I do not think further diagnostics are indicated at this time. 1111: Feels a lot better. Wants discharge. Smoking Status: Current some day smoker Constitutional: Initial Vital Signs Temperature (C) 36.4 C 12/26/16 07:50 Heart Rate 60 12/26/16 07:50 Respiratory Rate 24 H 12/26/16 07:50 Blood Pressure 119/86 H 12/26/16 07:50 O2 Sat (%) 100 12/26/16 07:50 O2 Delivery Mode Room Air O2 (L/minute) 2 Allergies/Adverse Reactions: No Known Allergies Allergy (Verified 12/26/16 07:50) Home Medications: Medication Instructions Recorded Ondansetron Odt [Zofran Odt] 4 mg PO Q4PRN PRN #20 tab 12/20/16 Medical Decision Making Differential Diagnosis: Differential diagnosis considered for nausea and vomiting including but not limited to gastroenteritis, gastritis, appendicitis, and medication side effect. - Data Points Medications Given: Discontinued Medications Haloperidol Lactate (Haldol Injection) 5 mg IV EDNOW ONE Stop: 12/26/16 08:34 Last Admin: 12/26/16 09:10 Dose: 5 mg Sodium Chloride (Ns) 1,000 mls @ 0 mls/hr IV ONCE ONE PRN Reason: Wide Open Stop: 12/26/16 08:35 Last Admin: 12/26/16 09:10 Dose: 1,000 mls Sodium Chloride (Ns) 1,000 mls @ 0 mls/hr IV ONCE ONE PRN Reason: Wide Open Stop: 12/26/16 08:35 Last Admin: 12/26/16 09:10 Dose: 1,000 mls Ketamine HCl (Ketamine) 25 mg IVP EDNOW ONE Stop: 12/26/16 08:35 Last Admin: 12/26/16 09:10 Dose: 25 mg Lorazepam (Ativan Injection) 1 mg IVP EDNOW ONE Stop: 12/26/16 08:34 Last Admin: 12/26/16 09:10 Dose: 1 mg Departure - Departure Disposition: Home, Routine, Self-Care Clinical Impression: Cyclic vomiting syndrome Qualifiers: Vomiting Intractability: unspecified Nausea presence: with nausea Qualified Code(s): G43.A0 - Cyclical vomiting, not intractable Condition: Good Instructions: Acute Nausea and Vomiting (ED) Referrals: MARY MARQUEZ [Other] - As per Instructions
[2016-12-26] MEDS ORDERED: LORazepam 2 MG/ML INJ IVP ONE (08:33)
[2016-12-26] MEDS ORDERED: HALOPERIDOL LACT 5 MG/ML INJ IV ONE (08:33)
[2016-12-26] MEDS ORDERED: KETAMINE 100 MG/10 ML SYR IVP ONE (08:34)
[2016-12-26] MEDS ORDERED: NS 1,000 ML IV ONE ×2 (08:34)
[2016-12-26 11:21] VITALS: BP 141/71; PULSE 85; RESP 18; TEMP 98.6; O2SAT 95
== END 2016-12-26 11:33 | disposition home or self-care (01) ==
DX: G43.A0 Cyclical vomiting, in migraine, not intractable (principal); F17.200 Nicotine dependence, unspecified, uncomplicated
CPT/HCPCS: 96374; J2060

== ENCOUNTER 2017-02-07 08:57 | Day surgery (SDC) | payer MEDICAID ==
[2017-02-07] MEDS ORDERED: LIDOCAINE 1% 5 ML SDV ID PRN (09:07)
[2017-02-07] MEDS ORDERED: LR 1,000 ML IV ONE (09:07)
[2017-02-07] MEDS ORDERED: LIDOCAINE 1% 2 ML INJ ONE (09:08)
[2017-02-07] MEDS ORDERED: MIDAZOLAM 2 MG/2 ML VIAL ONE (10:00)
[2017-02-07] MEDS ORDERED: fentaNYL 100 MCG/2 ML INJ ONE (10:04)
[2017-02-07] MEDS ORDERED: PROPOFOL 200 MG/20 ML VIAL ONE (10:04)
--- NOTE | 2017-02-07 11:02 | GPN ---
[f rep st] PROCEDURE NOTE PREPROCEDURE DIAGNOSES: Heartburn, nausea, vomiting. PROCEDURE: Esophagogastroduodenoscopy with biopsies. POSTPROCEDURE DIAGNOSIS: Esophagitis. MEDICATIONS: Monitored anesthesia care. INDICATIONS: The patient is a 36-year-old gentleman who presents to our office with nausea, vomitin g, and heartburn. He is referred for upper endoscopy for further evaluation and biopsies for H pylo ri and duodenal biopsies for celiac sprue. He was recently started on pantoprazole 40 mg orally james ly, which he has found to be helpful, although he finds it difficult to take this medication as dire cted. The risks and benefits of the procedures were discussed the patient. Consent obtained. Risks inclu de, but are not limited to, bleeding, perforation, and risks related to sedation. The patient is A Class 1. PROCEDURE IN DETAIL: The ending endoscope was inserted into the esophagus, into the stomach, and th e second portion of the duodenum. The esophagus shows LA grade A esophagitis at the gastroesophagea l junction located at 40 cm from incisors. There is no evidence of Nicholas's or varices. The stoma ch is normal. Biopsies were taken using cold biopsy forceps of the gastric antrum, greater curvatur e and incisura, to evaluate for Helicobacter pylori. The duodenum and second portion was normal. B iopsies were taken using cold biopsy forceps for celiac sprue. IMPRESSION: 1. LA grade A esophagitis located at the gastroesophageal junction. 2. Status post biopsies of the stomach. 3. Status post biopsies of the duodenum. RECOMMENDATION: 1. Discharged home with escort. 2. Advance diet as tolerated. 3. Continue pantoprazole 40 mg orally daily. I will encourage him to use this as directed once per day 30 minutes before dinner. 4. Follow up the final biopsy results. Results available within 10 days. 5. Follow up with our clinic as previously scheduled for further recommendations and management of the nausea, vomiting, and heartburn. Thank you for allowing me to participate in the care of your patient. Please do not hesitate to marie l with questions. /[id number]/MODL
== END 2017-02-07 11:30 | disposition home or self-care (01) ==
LOC: FSGY 08:57
PROVIDERS: ATTEND Internal Medicine Gastroenterology
DX: K21.0 Gastro-esophageal reflux disease with esophagitis (principal)
CPT/HCPCS: J2250; J2704; J3010

== ENCOUNTER 2017-04-03 09:35 | Emergency (ER) | payer MEDICAID ==
[2017-04-03] MEDS ORDERED: ONDANSETRON 4 MG/2 ML VIAL ONE (09:52)
[2017-04-03] MEDS ORDERED: PROMETHAZINE HCL 25 MG/ML INJ ONE (10:05)
[2017-04-03] MEDS ORDERED: NS 1,000 ML IV ONE ×2 (10:11→10:38)
[2017-04-03] MEDS ORDERED: PROMETHAZINE HCL 25 MG/ML INJ IVP ONE (10:11)
[2017-04-03] MEDS ORDERED: ONDANSETRON 4 MG/2 ML VIAL IVP ONE (10:11)
[2017-04-03 10:19] LABS: % IMMATURE GRANULYOCYTES 0.6 % (0.0-1.1); ABSOLUTE IMMATURE GRANULOCYTES 0.09 10^3/uL (0.00-0.10); ADD DIFF? NO; ADD MORPH? NO; ADD SCAN? NO; ATYPICAL LYMPHOCYTE FLAG 0 (0-99); FRAGMENT RBC FLAG 0 (0-99); HEMOGLOBIN 16.5 g/dL (13.7-17.5); LEFT SHIFT FLG 10 (0-99); LIPEMIA HEMOLYSIS FLAG 90 (0-99); MEAN CELL HEMOGLOBIN 31.4 pg (27.9-34.1); MEAN CELL HEMOGLOBIN CONCENTR. 35.1 g/dL (32.4-36.7); MEAN CELL VOLUME 89.4 fL (81.5-99.8); MEAN PLATELET VOLUME 11.7 fL (8.7-11.7); PLATELET CLUMPS FLAG 0 (0-99); PLATELET COUNT 272 10^3/uL (150-400); RED BLOOD CELL COUNT 5.26 10^6/uL (4.40-6.38); RED CELL DISTRIBUTION WIDTH 11.9 % (11.5-15.2)
[2017-04-03 10:27] LABS: ANION GAP 18 mEq/L (8-16); CALCIUM 10.5 mg/dL (8.5-10.4); CARBON DIOXIDE 16 mEq/l (22-31); CHLORIDE 108 mEq/L (97-110); CREATININE 1.1 mg/dL (0.7-1.3); GLOMERULAR FILTRATION RATE > 60; GLUCOSE 128 mg/dL (70-100); SODIUM 142 mEq/L (134-144)
[2017-04-03] MEDS ORDERED: LORazepam 2 MG/ML INJ ONE (10:31)
[2017-04-03] MEDS ORDERED: LORazepam 2 MG/ML INJ IVP ONE (10:54)
--- NOTE | 2017-04-03 10:55 | EDPHY ---
H & P Smoking Status: Current some day smoker Time Seen by Provider: 04/03/17 10:16 HPI/ROS: CHIEF COMPLAINT: Vomiting, diarrhea, dehydration, anxiety HISTORY OF PRESENT ILLNESS: 36-year-old male presents to the emergency department after multiple episodes of vomiting. He feels extremely dehydrated and extremely anxious. Patient has had multiple episodes of these same symptoms in the past. He saw Gastroenterology and had a recent endoscopy 3 weeks ago which was normal. He has diffuse abdominal pain. He denies chest pain or difficulty breathing. No fevers or chills. No headache. No neck or back pain. No pain in upper or lower extremities. He initially thought this was related to food poisoning. REVIEW OF SYSTEMS: Constitutional: No fever, no chills. Eyes: No double or blurry vision. ENT: No sore throat. Respiratory: No cough, no shortness of breath. Cardiac: No chest pain. Gastrointestinal: Vomiting, diarrhea, abdominal pain. Genitourinary: No dysuria. Musculoskeletal: No neck or back pain. Skin: No rashes. Neurological: No headache. (Verona Montgomery) Past Medical/Surgical History: Anxiety, cyclical vomiting syndrome, rhinoplasty (Verona Montgomery) Social History: and lives in [place] (Verona Montgomery) Physical Exam: General Appearance: Alert. Extremely anxious. Eyes: Pupils equal and round. Extraocular motions are all intact. ENT: Mouth: Mucous membranes moist. Respiratory: No wheezing, rhonchi, or rales, lungs are clear to auscultation. Cardiovascular: Regular rate and rhythm. Gastrointestinal: Abdomen is soft. Bowel sounds are present. Diffusely tender to palpate. No masses, rebound or guarding noted. No CVA tenderness bilaterally. Neurological: Alert and oriented x 3, cranial nerves II through XII grossly intact Skin: Warm and dry, no rashes. Musculoskeletal: Nontender to palpate along the cervical, thoracic or lumbar spine. Neck is supple. Extremities: Full range of motion and no peripheral edema. Psychiatric: Patient is oriented X 3, there is no agitation. (Verona Montgomery) Constitutional: Initial Vital Signs Temperature (C) 36.4 C 04/03/17 09:45 Heart Rate 62 04/03/17 09:45 Respiratory Rate 22 H 04/03/17 09:45 Blood Pressure 152/82 H 04/03/17 09:45 O2 Sat (%) 98 04/03/17 09:45 O2 Delivery Mode Room Air Allergies/Adverse Reactions: No Known Allergies Allergy (Verified 04/03/17 09:48) Home Medications: Medication Instructions Recorded Ondansetron Odt [Zofran Odt 4 mg 4 mg PO Q4 04/03/17 (*)] Medical Decision Making ED Course/Re-evaluation: 36-year-old male presents extremely anxious and vomiting. Patient had IV established and was given IV normal saline. Was given 2 mg of IV Ativan. He was feeling much better. He was tolerating p.o. fluids. His abdomen was benign. I do not think imaging studies are indicated. Laboratory studies are unremarkable. The patient is comfortable being discharged home. 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 Encouraged close follow-up with primary care provider and return if he has any other change in symptoms, recurring vomiting, or if he feels worse in any way. (Verona Montgomery) I did not see this patient while he was in the emergency department. However his care was discussed with the PA while the patient was in the department. I agree with treatment plan and management (Zander Sanon) Differential Diagnosis: Including but not limited to cyclical vomiting syndrome, dehydration, anxiety, gastroenteritis, gastritis (Verona Montgomery) - Data Points Laboratory Results: Laboratory Results 04/03/17 10:02 04/03/17 10:02 Medications Given: Discontinued Medications Sodium Chloride (Ns) 1,000 mls @ 0 mls/hr IV ONCE ONE PRN Reason: Wide Open Stop: 04/03/17 10:12 Last Admin: 04/03/17 10:13 Dose: 1,000 mls Sodium Chloride (Ns) 1,000 mls @ 0 mls/hr IV ONCE ONE PRN Reason: Wide Open Stop: 04/03/17 10:39 Last Admin: 04/03/17 10:54 Dose: 1,000 mls Lorazepam (Ativan Injection) 2 mg IVP EDNOW ONE Stop: 04/03/17 10:55 Last Admin: 04/03/17 10:54 Dose: 2 mg Ondansetron HCl (Zofran) 4 mg IVP EDNOW ONE Stop: 04/03/17 10:12 Last Admin: 04/03/17 10:14 Dose: 4 mg Promethazine HCl (Phenergan) 12.5 mg IVP ONCE ONE Stop: 04/03/17 10:12 Last Admin: 04/03/17 10:14 Dose: 12.5 mg Departure - Departure Disposition: Home, Routine, Self-Care Clinical Impression: Abdominal pain, Vomiting, Anxiety, Dehydration Condition: Good Instructions: Dehydration (ED), Acute Nausea and Vomiting (ED), Abdominal Pain (ED), Anxiety (ED) Additional Instructions: Follow up with primary care provider. Return to the emergency department if you developed recurring vomiting, fever, abdominal pain, or if you feel worse in any way. Referrals: MARY MARQUEZ [Other] - As per Instructions
[2017-04-03 13:46] VITALS: BP 130/74; PULSE 80; RESP 14; TEMP 98.4; O2SAT 94
== END 2017-04-03 13:44 | disposition home or self-care (01) ==
DX: R11.10 Vomiting, unspecified (principal); R10.84 Generalized abdominal pain; F41.9 Anxiety disorder, unspecified; E86.0 Dehydration; F17.200 Nicotine dependence, unspecified, uncomplicated
CPT/HCPCS: 96374; J2060; J2405; J2550

== ENCOUNTER 2017-04-10 15:42 | Emergency (ER) | payer MEDICAID ==
[2017-04-10 15:48] VITALS: RESP 16
[2017-04-10] MEDS ORDERED: NS 1,000 ML IV ONE (16:13)
[2017-04-10] MEDS ORDERED: LORazepam 2 MG/ML INJ IVP ONE (16:19)
[2017-04-10] MEDS ORDERED: METOCLOPRAMIDE 10 MG/2 ML VIAL IVP ONE (16:19)
--- NOTE | 2017-04-10 16:23 | EDPHY ---
H & P Stated Complaint: worst case of " heart burn ever." nausea and vomiting since am , hx cyclic v - Personal History Current Tetanus/Diphtheria Vaccine: Yes Current Tetanus Diphtheria and Acellular Pertussis (TDAP): Yes Tetanus Vaccine Date: < 10 YEARS - Medical/Surgical History Hx Asthma: No Hx Chronic Respiratory Disease: No Hx Diabetes: No Hx Cardiac Disease: No Hx Renal Disease: No Hx Cirrhosis: No Hx Alcoholism: No Hx HIV/AIDS: No Hx Splenectomy or Spleen Trauma: No Other PMH: pmh: cyclic vomiting syndrome. psh: rhinoplasty - Social History Smoking Status: Current some day smoker Time Seen by Provider: 04/10/17 16:12 HPI/ROS: CHIEF COMPLAINT: Nausea, "heart burn" since last night HISTORY OF PRESENT ILLNESS: 36-year-old male self-described history of cyclic vomiting syndrome arrives via private vehicle complaining of awaking in the middle of the evening last night with "heartburn" . No antecedent vomiting. Positive nausea which has been occurring for several days since last ER visit of 04/03/2017. No chest pain per se. No back or flank pain. . No dyspnea. No headache. No syncope or near syncope. No diaphoresis. No cocaine use. No family history of premature coronary artery disease. REVIEW OF SYSTEMS: A ten point review of systems was performed and is negative with the exception of the items mentioned in the HPI PAST MEDICAL & SURGICAL HISTORY: self-described history of cyclic vomiting syndrome. SOCIAL HISTORY: daily marijuana smoking. Frequent alcohol use. No history of cocaine use. FAMILY HISTORY: No family history of premature coronary artery disease. PHYSICAL EXAM (Prior to examination, patient consented to physical exam, hands were washed and my usual and customary physical exam procedures followed) 1) GENERAL: Well-developed, well-nourished, alert and oriented. Appears is uncomfortable, anxious 2) HEAD: Normocephalic, atraumatic 3) HEENT: Pupils equal, round, reactive to light bilaterally. Sclera anicteric. Nasopharynx, oropharynx, clear, no lesions. Dry mucous membranes 4) NECK: Full range of motion, no meningeal signs. 5) LUNGS: Clear auscultation bilaterally, no wheezes, no rhonchi, no retractions. 6) HEART: Regular rate and rhythm, no murmur, no heave, no gallop. 7) ABDOMEN: No guarding, is focally tender to palpation right upper quadrant with positive Boston's, negative McBurney's, negative Rovsing's, negative peritoneal sign, 8) MUSCULOSKELETAL: Moving all extremities, no focal areas of tenderness, no obvious trauma. No peripheral edema or discoloration. 9) BACK: No CVA tenderness. 10) SKIN: No rash, no petechiae. 11) Psychiatric: Patient is oriented X 3, there is no agitation. DIFFERENTIAL DIAGNOSIS: My differential diagnosis includes, but is not limited to, ME, aortic dissection, acute appendicitis, acute cholecystitis, bowel obstruction, acute pancreatitis,, gastritis and urinary tract infection. The patient understands that this diagnosis is provisional and can never be 100 % accurate. This is a partial list of diagnoses considered. These considerations are based on history, physical exam, past history and reassessment. (Ada Wellington) Constitutional: Initial Vital Signs Temperature (C) 36.4 C 04/10/17 15:45 Heart Rate 56 L 04/10/17 15:45 Respiratory Rate 16 04/10/17 15:45 Blood Pressure 119/63 04/10/17 15:45 O2 Sat (%) 99 04/10/17 15:45 O2 Delivery Mode Room Air Allergies/Adverse Reactions: No Known Allergies Allergy (Verified 04/03/17 09:48) Home Medications: Medication Instructions Recorded Ondansetron Odt [Zofran Odt 4 mg 4 mg PO Q4 04/03/17 (*)] Pantoprazole Sodium [Protonix 40mg 40 mg PO DAILY #30 tab 04/10/17 (RX)] Medical Decision Making - Diagnostics Imaging Results: Images reviewed by myself (Ada Wellington) ED Course/Re-evaluation: This patient was re-evaluated with serial examinations was recently at 6:08 p.m. at which point he was observed tolerating oral intake. I have discussed the case with secondary supervising physician Dr. Suze Berg. He described heartburn like sensation last evening and further laboratory studies and diagnostics were obtained on the patient. In the presence of normal EKG, normal troponin, no gross cardiopulmonary abnormality on chest x-ray, I think that cardiac etiology is less than likely. Doubt PE. Ultrasound was obtained on this patient issues focally tender to palpation right upper quadrant and this showed no evidence of acute cholecystitis. Doubt acute surgical abdominal pathology such as acute cholecystitis or acute appendicitis or mesenteric ischemia. We discussed his ongoing cyclic vomiting syndrome symptoms and importance of follow-up with Gastroenterology. He has not been on a course of proton pump inhibitors and I recommended starting him on a proton pump inhibitor. Usual customary abdominal precautions instructions provided. He feels comfortable being discharged. (Ada Wellington) Other Provider: The patient was evaluated and managed by the physician operations administrative assistant. I have reviewed this chart and I agree with the findings and plan of care as documented , as indicated by my signature. I am the secondary supervising physician. ( Suze Berg) - Data Points Laboratory Results: Laboratory Results 04/10/17 16:20 04/10/17 16:20 Medications Given: Discontinued Medications Sodium Chloride (Ns) 1,000 mls @ 0 mls/hr IV ONCE ONE PRN Reason: Wide Open Stop: 04/10/17 16:14 Last Admin: 04/10/17 16:14 Dose: 1,000 mls Lorazepam (Ativan Injection) 1 mg IVP EDNOW ONE Stop: 04/10/17 16:20 Last Admin: 04/10/17 16:32 Dose: 1 mg Metoclopramide HCl (Reglan Injection) 10 mg IVP EDNOW ONE Stop: 04/10/17 16:20 Last Admin: 04/10/17 16:32 Dose: 10 mg Departure - Departure Disposition: Home, Routine, Self-Care Clinical Impression: Vomiting Condition: Good Instructions: Acute Nausea and Vomiting (ED) Additional Instructions: Seek immediate medical attention if you develop new or worsening symptoms, if you develop fevers, chills, inability to tolerate oral intake or any other symptoms that concerns you. Referrals: Arnaud Lucio MD [[facility] Primary Care Provider] - As per Instructions Prescriptions: Pantoprazole Sodium [Protonix 40mg (RX)] 40 mg PO DAILY #30 tab
[2017-04-10 16:27] LABS: % IMMATURE GRANULYOCYTES 0.4 % (0.0-1.1); ABSOLUTE IMMATURE GRANULOCYTES 0.04 10^3/uL (0.00-0.10); ADD DIFF? NO; ADD MORPH? NO; ADD SCAN? NO; ATYPICAL LYMPHOCYTE FLAG 0 (0-99); FRAGMENT RBC FLAG 0 (0-99); HEMATOCRIT 43.2 % (40.0-51.0); HEMOGLOBIN 15.2 g/dL (13.7-17.5); LEFT SHIFT FLG 10 (0-99); LIPEMIA HEMOLYSIS FLAG 90 (0-99); MEAN CELL HEMOGLOBIN 31.7 pg (27.9-34.1); MEAN CELL HEMOGLOBIN CONCENTR. 35.2 g/dL (32.4-36.7); MEAN PLATELET VOLUME 11.1 fL (8.7-11.7); PLATELET CLUMPS FLAG 0 (0-99); PLATELET COUNT 271 10^3/uL (150-400); RED CELL DISTRIBUTION WIDTH 11.9 % (11.5-15.2)
[2017-04-10 16:42] LABS: ALANINE AMINOTRANSFERASE 31 IU/L (21-72); ALKALINE PHOSPHATASE 90 IU/L (38-126); ANION GAP 15 mEq/L (8-16); ASPARTATE AMINOTRANSFERASE 31 IU/L (17-59); BILIRUBIN,TOTAL 0.9 mg/dL (0.1-1.4); BILIRUBIN-CONJUGATED 0.5 mg/dL (0.0-0.5); BILIRUBIN-UNCONJUGATED 0.4 mg/dL (0.0-1.1); CALCIUM 10.7 mg/dL (8.5-10.4); CARBON DIOXIDE 18 mEq/l (22-31); CHLORIDE 106 mEq/L (97-110); GLOMERULAR FILTRATION RATE > 60; GLUCOSE 102 mg/dL (70-100); POTASSIUM 4.3 mEq/L (3.5-5.2); SODIUM 139 mEq/L (134-144); TOTAL PROTEIN 8.5 g/dL (6.3-8.2)
[2017-04-10 16:52] LABS: TROPONIN I < 0.012 ng/mL (0-0.034)
--- NOTE | 2017-04-10 17:43 | CPEKG ---
Heart Rate: 65 RR Interval: 923 P-R Interval: 156 QRSD Interval: 92 QT Interval: 412 QTC Interval: 429 P [place]: 60 QRS [place]: 35 T Wave [place]: 32 EKG Severity - NORMAL ECG - EKG Impression: SINUS RHYTHM Electronically Signed By: Suze Berg 10-Apr-2017 22:33:04
[2017-04-10 18:34] VITALS: BP 106/57; PULSE 66; TEMP 98.2; O2SAT 95
== END 2017-04-10 18:33 | disposition home or self-care (01) ==
DX: R11.10 Vomiting, unspecified (principal); F17.200 Nicotine dependence, unspecified, uncomplicated
CPT/HCPCS: 96374; J2060; J2765

== ENCOUNTER 2017-04-12 10:06 | Emergency (ER) | payer MEDICAID ==
[2017-04-12] MEDS ORDERED: METOCLOPRAMIDE 10 MG/2 ML VIAL IVP ONE (10:12)
[2017-04-12] MEDS ORDERED: LORazepam 2 MG/ML INJ IVP ONE ×2 (10:12→11:07)
[2017-04-12] MEDS ORDERED: NS 1,000 ML IV ONE (10:12)
--- NOTE | 2017-04-12 10:19 | EDPHY ---
H & P - Personal History Tetanus Vaccine Date: < 10 YEARS - Medical/Surgical History Hx Asthma: No Hx Chronic Respiratory Disease: No Hx Diabetes: No Hx Cardiac Disease: No Hx Renal Disease: No Hx Cirrhosis: No Hx Alcoholism: No Hx HIV/AIDS: No Hx Splenectomy or Spleen Trauma: No Other PMH: pmh: cyclic vomiting syndrome. psh: rhinoplasty - Social History Smoking Status: Current some day smoker Time Seen by Provider: 04/12/17 10:11 HPI/ROS: CHIEF COMPLAINT: HISTORY OF PRESENT ILLNESS: 36-year-old male history of cyclic vomiting syndrome, has been evaluated emergency department previously for similar most recently 2 days ago by myself at which point his symptoms resolved after IV Ativan and reglan. He was started him on a proton pump inhibitor at that time which he has been taking for the past 2 days. he returns to the ER stating the symptoms returned this morning, is complaining of left upper quadrant abdominal pain, nausea, retching. Positive diarrhea which is non bloody non purulent. He has prior existing relationship with Gastroenterology. History of daily marijuana use. Testicular pain REVIEW OF SYSTEMS: A ten point review of systems was performed and is negative with the exception of the items mentioned in the HPI PAST MEDICAL & SURGICAL HISTORY: Cyclic vomiting syndrome SOCIAL HISTORY:daily marijuana use PHYSICAL EXAM (Prior to examination, patient consented to physical exam, hands were washed and my usual and customary physical exam procedures followed) 1) GENERAL: Well-developed, well-nourished, alert and oriented. Appears uncomfortable, leaning over an emesis basin, retching. 2) HEAD: Normocephalic, atraumatic 3) HEENT: Pupils equal, round, reactive to light bilaterally. Sclera anicteric. Nasopharynx, oropharynx, clear, no lesions. Dry Mucous membranes 4) NECK: Full range of motion, no meningeal signs. 5) LUNGS: Clear auscultation bilaterally, no wheezes, no rhonchi, no retractions. 6) HEART: Regular rate and rhythm, no murmur, no heave, no gallop. 7) ABDOMEN: Guarding abdomen, tender to palpation left upper quadrant, negative Boston's, negative McBurney's, negative peritoneal 8) MUSCULOSKELETAL: Moving all extremities. 9) BACK: No CVA tenderness 10) SKIN: No rash, no petechiae. 11) Psychiatric: Patient is oriented X 3, there is no agitation. DIFFERENTIAL DIAGNOSIS: My differential diagnosis includes, but is not limited to, acute appendicitis, acute cholecystitis, bowel obstruction, acute pancreatitis, gastritis , cyclic vomiting syndrome, cannabis hyperemesis syndrome, . The patient understands that this diagnosis is provisional and can never be 100% accurate. This is a partial list of diagnoses considered. These considerations are based on history, physical exam, past history and reassessment. (Ada Wellington) Constitutional: Initial Vital Signs Temperature (C) 36.4 C 04/12/17 10:10 Heart Rate 74 04/12/17 10:10 Respiratory Rate 20 04/12/17 10:10 Blood Pressure 150/88 H 04/12/17 10:10 O2 Sat (%) 97 04/12/17 10:10 O2 Delivery Mode Room Air Allergies/Adverse Reactions: No Known Allergies Allergy (Verified 04/12/17 10:19) Home Medications: Medication Instructions Recorded Ondansetron Odt [Zofran Odt 4 mg 4 mg PO Q4 04/03/17 (*)] Pantoprazole Sodium [Protonix 40mg 40 mg PO DAILY #30 tab 04/10/17 (RX)] Medical Decision Making ED Course/Re-evaluation: I am familiar with this patient's medical care have reviewed his old medical records. Plan will be laboratory studies, ketamine, Reglan, re- evaluation.Care and management in consultation with secondary supervising physician Dr Berg . 12:45 p.m.: Re-evaluation after IV ketamine, Ativan, Reglan, he remains retching complaining of nausea and abdominal pain. Will administer IV Haldol and reassessed. 1:30 p.m.: Patient complaining of continued pain after Haldol. Will administer 1 mg of Dilaudid. 2:30 p.m.: Patient re-evaluated after 1 mg of Dilaudid he is feeling "much better". He is resting comfortably. Re-examined his abdomen which is nontender no guarding no rebound no McBurney's point pain. Doubt acute surgical abdominal pathology, doubt acute cholecystitis, doubt acute appendicitis doubt bowel obstruction. Patient would like to be discharged. I have offered admission which he declines. Recommend marijuana cessation. 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 Recommend continue his proton pump inhibitor. He feels comfortable being discharged. Usual and customary discharge precautions and instructions provided. (Ada Wellington) The patient was evaluated and managed by the physician patient support assistant. I have reviewed this chart and I agree with the findings and plan of care as documented , as indicated by my signature. I am the secondary supervising physician. ( Suze Berg) - Data Points Laboratory Results: Laboratory Results 04/12/17 12:54 04/12/17 12:54 Medications Given: Discontinued Medications Haloperidol Lactate (Haldol Injection) 2.5 mg IVP EDNOW ONE Stop: 04/12/17 12:45 Last Admin: 04/12/17 12:54 Dose: 2.5 mg Hydromorphone HCl (Dilaudid) 1 mg IVP EDNOW ONE Stop: 04/12/17 13:31 Last Admin: 04/12/17 13:36 Dose: 1 mg Sodium Chloride (Ns) 1,000 mls @ 0 mls/hr IV ONCE ONE PRN Reason: Wide Open Stop: 04/12/17 10:13 Last Admin: 04/12/17 10:31 Dose: 1,000 mls Ketamine HCl (Ketamine) 16 mg IVP EDNOW ONE Stop: 04/12/17 10:38 Last Admin: 04/12/17 10:53 Dose: 16 mg Lorazepam (Ativan Injection) 1 mg IVP EDNOW ONE Stop: 04/12/17 10:13 Last Admin: 04/12/17 10:33 Dose: Not Given Lorazepam (Ativan Injection) 1 mg IVP EDNOW ONE Stop: 04/12/17 11:08 Last Admin: 04/12/17 11:11 Dose: 1 mg Metoclopramide HCl (Reglan Injection) 10 mg IVP EDNOW ONE Stop: 04/12/17 10:13 Last Admin: 04/12/17 10:31 Dose: 10 mg Departure - Departure Disposition: Home, Routine, Self-Care Clinical Impression: Abdominal pain, Cyclic vomiting syndrome, Nausea & vomiting Condition: Good Instructions: Acute Nausea and Vomiting (ED), Acute Abdominal Pain (ED) Additional Instructions: Seek immediate medical attention if you develop new or worsening symptoms, if you develop fevers, chills, inability to tolerate oral intake or any other symptoms that concerns you. Keep taking your Protonix medication as prescribed follow-up with your cathode ray tube salvage processor Referrals: [facility] [Provider Group] - 04/15/17
[2017-04-12 10:21] VITALS: TEMP 97.5
[2017-04-12] MEDS ORDERED: KETAMINE 100 MG/10 ML SYR IVP ONE (10:37)
[2017-04-12] MEDS ORDERED: HALOPERIDOL LACT 5 MG/ML INJ IVP ONE (12:44)
[2017-04-12 13:03] LABS: % IMMATURE GRANULYOCYTES 0.5 % (0.0-1.1); ABSOLUTE IMMATURE GRANULOCYTES 0.06 10^3/uL (0.00-0.10); ADD DIFF? NO; ADD MORPH? NO; ADD SCAN? NO; ATYPICAL LYMPHOCYTE FLAG 0 (0-99); FRAGMENT RBC FLAG 0 (0-99); HEMATOCRIT 44.3 % (40.0-51.0); HEMOGLOBIN 15.2 g/dL (13.7-17.5); LEFT SHIFT FLG 30 (0-99); LIPEMIA HEMOLYSIS FLAG 90 (0-99); MEAN CELL HEMOGLOBIN 31.3 pg (27.9-34.1); MEAN CELL HEMOGLOBIN CONCENTR. 34.3 g/dL (32.4-36.7); MEAN CELL VOLUME 91.3 fL (81.5-99.8); MEAN PLATELET VOLUME 11.2 fL (8.7-11.7); PLATELET CLUMPS FLAG 0 (0-99); PLATELET COUNT 267 10^3/uL (150-400); RED BLOOD CELL COUNT 4.85 10^6/uL (4.40-6.38)
[2017-04-12 13:16] LABS: ALANINE AMINOTRANSFERASE 28 IU/L (21-72); ALBUMIN 4.6 g/dL (3.5-5.0); ALKALINE PHOSPHATASE 79 IU/L (38-126); ANION GAP 12 mEq/L (8-16); ASPARTATE AMINOTRANSFERASE 32 IU/L (17-59); BILIRUBIN,TOTAL 1.1 mg/dL (0.1-1.4); BILIRUBIN-CONJUGATED 0.3 mg/dL (0.0-0.5); BILIRUBIN-UNCONJUGATED 0.8 mg/dL (0.0-1.1); CALCIUM 9.9 mg/dL (8.5-10.4); CARBON DIOXIDE 20 mEq/l (22-31); CHLORIDE 107 mEq/L (97-110); CREATININE 1.1 mg/dL (0.7-1.3); GLOMERULAR FILTRATION RATE > 60; GLUCOSE 103 mg/dL (70-100); POTASSIUM 4.5 mEq/L (3.5-5.2); SODIUM 139 mEq/L (134-144); TOTAL PROTEIN 7.8 g/dL (6.3-8.2)
[2017-04-12] MEDS ORDERED: HYDROmorphONE/DILAUDID 1 MG/ML SYR IVP ONE (13:30)
[2017-04-12 14:10] VITALS: BP 125/73
[2017-04-12 14:52] VITALS: PULSE 60; RESP 16; O2SAT 95
== END 2017-04-12 14:51 | disposition home or self-care (01) ==
DX: R10.12 Left upper quadrant pain (principal); G43.A0 Cyclical vomiting, in migraine, not intractable; F17.200 Nicotine dependence, unspecified, uncomplicated
CPT/HCPCS: 96374; J1170; J2060; J2765

== ENCOUNTER 2017-05-01 10:22 | Emergency (ER) | payer MEDICAID ==
[2017-05-01 10:26] VITALS: BP 135/59; PULSE 54; RESP 16; TEMP 98.4; O2SAT 99
--- NOTE | 2017-05-01 16:09 | EDPHY ---
H & P Time Seen by Provider: 05/01/17 12:16 HPI/ROS: Chief complaint. Vomiting HPI. Patient is a 36-year-old male presents emergency department with nausea vomiting for 1 week. He has crampy mid abdominal pain. Symptoms are typical of his recurrent vomiting. He has been diagnosed with cyclic vomiting syndrome though is concerned that this may not be the correct diagnosis. He has tried not smoking marijuana and apparently has recurrence of symptoms. He has recently been started on antidepressants by his new PCP. No diarrhea. No urinary symptoms. No fever. Symptoms are typical of previous symptoms ROS Constitutional. no fever/chills, no weakness Eyes. no problems with vision ENT. no sore throat, no nasal drainage Cardiovascular. no chest pain Respiratory. no shortness of breath, no cough Abdominal. Abdominal pain and vomiting . no problems urinating MS. no calf pain/swelling, no neck/back pain, no joint pain Skin. no rash Lymph. no swollen glands Neuro. no headache, no dizziness, no difficulty walking or with speech Past Medical/Surgical History: Cyclic vomiting syndrome Social History: Single, daily smoker, no alcohol Smoking Status: Current some day smoker Physical Exam: General Appearance: Alert well-developed male mild distress vital signs stable Eyes: Pupils equal and round no pallor or injection. ENT, Mouth: Mucous membranes are moist. Respiratory: There are no retractions, lungs are clear to auscultation. Cardiovascular: Regular rate and rhythm. Gastrointestinal: Abdomen is soft and nontender, no masses, bowel sounds normal. Neurological: Awake and alert, sensory and motor exams grossly normal. Skin: Warm and dry, no rashes. Musculoskeletal: Neck is supple nontender. Extremities symmetrical, full range of motion. Psychiatric: Patient is oriented X 3, there is no agitation. Constitutional: Initial Vital Signs Temperature (C) 36.9 C 05/01/17 10:25 Heart Rate 54 L 05/01/17 10:25 Respiratory Rate 16 05/01/17 10:25 Blood Pressure 135/59 H 05/01/17 10:25 O2 Sat (%) 99 05/01/17 10:25 O2 Delivery Mode Room Air Allergies/Adverse Reactions: No Known Allergies Allergy (Verified 04/12/17 10:19) Home Medications: Medication Instructions Recorded Ondansetron Odt [Zofran Odt 4 mg 4 mg PO Q4 04/03/17 (*)] Pantoprazole Sodium [Protonix 40mg 40 mg PO DAILY #30 tab 04/10/17 (RX)] Medical Decision Making ED Course/Re-evaluation: The patient is already feeling better by the time I see the patient. He does not wish further evaluation or treatment at this point in time. He has medication at home. The patient and I discussed his home treatment plan including criteria for return importance of follow-up and further evaluation. He expresses understanding and agreement Differential Diagnosis: Causes of recurrent abdominal pain and vomiting include cyclic vomiting syndrome , irritable bowel syndrome, abdominal migraines. I do not think the patient has appendicitis Departure - Departure Disposition: Home, Routine, Self-Care Clinical Impression: Abdominal pain Qualifiers: Abdominal location: periumbilical Qualified Code(s): R10.33 - Periumbilical pain Condition: Good Instructions: Acute Abdominal Pain (ED) Additional Instructions: Frequent, small sips fluids well nauseated. Gradual diet advancement. Continue your regular medications. Return for worsening symptoms. Recheck with your regular physician in 1-2 days if not continuing to improve Referrals: [facility] [Other] - 1 day, if not improved
== END 2017-05-01 12:36 | disposition home or self-care (01) ==
DX: R10.33 Periumbilical pain (principal); F17.200 Nicotine dependence, unspecified, uncomplicated

== ENCOUNTER 2017-05-02 10:13 | Emergency (ER) | payer MEDICAID ==
[2017-05-02 10:18] VITALS: TEMP 98.2
[2017-05-02] MEDS ORDERED: NS 1,000 ML IV ONE (10:41)
[2017-05-02] MEDS ORDERED: LORazepam 2 MG/ML INJ ONE (10:46)
[2017-05-02] MEDS ORDERED: LORazepam 2 MG/ML INJ IVP ONE (10:47)
--- NOTE | 2017-05-02 12:22 | EDPHY ---
H & P Stated Complaint: cyclical vomitting Time Seen by Provider: 05/02/17 10:37 HPI/ROS: CHIEF COMPLAINT: nausea and vomiting HISTORY OF PRESENT ILLNESS: 36-year-old male well known to the emergency department with 12 visits in the last year presents with nausea and vomiting. Patient was seen yesterday in the emergency department for the same symptoms. Patient has been diagnosed with cyclic vomiting syndrome, he is a daily marijuana smoker. Patient reports his symptoms are no new than his typical symptoms. He reports mild upper abdominal pain. No fevers, no diarrhea, no urinary symptoms. Patient denies blood in his vomit. Patient reports taking hot showers helped his symptoms. Patient was just started on Celexa 2 weeks ago by his primary care doctor. He has a follow-up appointment in 4 days. REVIEW OF SYSTEMS: A comprehensive 10 point review of systems is otherwise negative aside from elements mentioned in the history of present illness. Source: Patient Exam Limitations: No limitations - Personal History Current Tetanus/Diphtheria Vaccine: Yes Current Tetanus Diphtheria and Acellular Pertussis (TDAP): Yes Tetanus Vaccine Date: < 10 YEARS - Medical/Surgical History Hx Asthma: No Hx Chronic Respiratory Disease: No Hx Diabetes: No Hx Cardiac Disease: No Hx Renal Disease: No Hx Cirrhosis: No Hx Alcoholism: No Hx HIV/AIDS: No Hx Splenectomy or Spleen Trauma: No Other PMH: pmh: cyclic vomiting syndrome. psh: rhinoplasty - Social History Smoking Status: Current some day smoker - Physical Exam Exam: Physical Exam Gen: Alert and Oriented, NAD HEENT: PERRL, moist mucous membranes NECK: no meningismus CV: regular rate and regular rhythm PULM: CTAB, no wheezes ABDOMEN: soft, non tender to palpation, BS present BACK: No CVA tenderness NEURO: Neurologically grossly intact EXTREMITIES: normal appearing SKIN: no rash or break in skin on exposed skin PSYCH: answers questions appropriately. Constitutional: Initial Vital Signs Temperature (C) 36.8 C 05/02/17 10:15 Heart Rate 58 L 05/02/17 10:15 Respiratory Rate 16 05/02/17 10:15 Blood Pressure 158/86 H 05/02/17 10:15 O2 Sat (%) 98 05/02/17 10:15 Allergies/Adverse Reactions: No Known Allergies Allergy (Verified 04/12/17 10:19) Home Medications: Medication Instructions Recorded Ondansetron Odt [Zofran Odt 4 mg 4 mg PO Q4 04/03/17 (*)] Pantoprazole Sodium [Protonix 40mg 40 mg PO DAILY #30 tab 04/10/17 (RX)] Medical Decision Making ED Course/Re-evaluation: IV established, patient is given 1 mg of lorazepam IV. He is nontoxic appearing , no peritoneal signs. 1225pm-patient is feeling much better after 1 mg of lorazepam, repeat abdominal exam is normal, he has no tenderness. Patient will be discharged home. He will follow up with his primary care doctor as scheduled in 4 days. I have referred the patient to [facility] to establish care with a therapist as I think this will help. Differential Diagnosis: Diagnosis considered but not limited to cyclic vomiting syndrome, irritable bowel syndrome, medication side-effect, anxiety - Data Points Medications Given: Discontinued Medications Sodium Chloride (Ns) 1,000 mls @ 0 mls/hr IV ONCE ONE PRN Reason: Wide Open Stop: 05/02/17 10:42 Last Admin: 05/02/17 10:41 Dose: 1,000 mls Lorazepam (Ativan Injection) 1 mg IVP EDNOW ONE Stop: 05/02/17 10:48 Last Admin: 05/02/17 10:47 Dose: 1 mg Departure - Departure Disposition: Home, Routine, Self-Care Clinical Impression: Cyclic vomiting syndrome Qualifiers: Vomiting Intractability: non-intractable Nausea presence: with nausea Qualified Code(s): G43.A0 - Cyclical vomiting, not intractable Condition: Good Instructions: Acute Nausea and Vomiting (ED) Additional Instructions: Follow-up with your primary care doctor on Saturday as scheduled. Take your medication as prescribed. I recommend establishing care with a therapist. I will refer you to [facility]. Call to schedule an appointment. Referrals: [facility] [Other] - As per Instructions [facility] [Clinic] - As per Instructions
[2017-05-02 12:26] VITALS: BP 155/85; PULSE 65; RESP 18; O2SAT 95
== END 2017-05-02 12:31 | disposition home or self-care (01) ==
DX: G43.A0 Cyclical vomiting, in migraine, not intractable (principal); F17.200 Nicotine dependence, unspecified, uncomplicated
CPT/HCPCS: 96374; J2060

== ENCOUNTER 2017-05-26 13:53 | Observation (INO) | payer MEDICAID ==
[2017-05-26] MEDS ORDERED: NS 2,000 ML IV ONE (14:24)
[2017-05-26] MEDS ORDERED: PROMETHAZINE HCL 25 MG/ML INJ IVP ONE (14:25)
[2017-05-26] MEDS ORDERED: LORazepam 2 MG/ML INJ IVP ONE (14:26)
[2017-05-26] MEDS ORDERED: PANTOPRAZOLE SODIUM 40 MG in NS 100 ML IV ONE (14:26)
--- NOTE | 2017-05-26 14:30 | EDPHY ---
H & P Smoking Status: Current some day smoker Time Seen by Provider: 05/26/17 14:27 HPI/ROS: HPI: Mr. Montanez is a 36 yrs, male who presents with Chief Complaint: Nausea and vomiting Location: Epigastric Quality: Nausea and vomiting Duration: Since this morning approximately 3-8 hours Signs and Symptoms: Positive epigastric pain, no diarrhea, no constipation, no chest pain, no shortness of breath, no indigestion, no palpitation, positive anxiety, no fever, no urinary symptoms Timing: Acute on chronic, sudden and constant, intermittent dry heaves Severity: 10/10 Context: Complains of sharp epigastric pain accompanied by nausea and dry heaves has not actually vomited today. Symptoms started upon awakening. Patient smokes marijuana daily. EGD with biopsies performed February 07, 2017 which showed esophagitis at GE junction no H pylori and chronic inflammation. abdominal ultrasound reviewed on April 10, 2017 that showed normal gallbladder with a common bile duct of 4 mm. Not been taking his Protonix per recommendation for several months. He has not been taking Celexa as prescribed for unknown reasons. Modifying Factors: No [id number] medications tried Comment: ROS: Eyes: No blurred vision Respiratory: No shortness of breath, no cough Cardiovascular: No chest pain Gastrointestinal: + nausea, + vomiting no diarrhea Genitourinary: No dysuria Extremities: No myalgias Neurologic: No weakness, no numbness Skin: No rashes Hematologic: No bruising, no bleeding MEDICAL/SURGICAL HISTORY: Cyclical vomiting syndrome, rhinoplasty, anxiety. (Bernadette Engle) Social History: Employed. Has a girlfriend. (Bernadette Engle) Physical Exam: CONSTITUTIONAL: Adult male with moderate distress, able to talk, no active emesis, awake and alert HEENT: Atraumatic and normocephalic, PERRL, EOMI. Tympanic membranes clear. . Oropharynx clear, no exudate and moist pink mucosa. Airway patent. No lymphadenopathy. No meningismus. Cardiovascular: Normal S1/S2, regular rate, regular rhythm, without murmur rub or gallop. PULMONARY/CHEST: Symmetrical and nontender. Clear to auscultation bilaterally. Good air movement. No accessory muscle usage. Tachypnea noted. ABDOMEN: Soft, nondistended, epigastric moderate tenderness, no rebound, no guarding, no peritoneal signs, no masses or organomegaly. No CVAT. EXTREMITIES: 2/2 pulses, no deformities, no clubbing, no cyanosis or edema. NEUROLOGICAL: no focal neuro deficits. GCS 15. SKIN: Warm and dry, diaphoresis, no erythema. no rash. Good capillary refill. (Bernadette Engle) Constitutional: Initial Vital Signs Temperature (C) 36.8 C 05/26/17 13:57 Heart Rate 80 05/26/17 13:57 Respiratory Rate 28 H 05/26/17 13:57 Blood Pressure 148/103 H 05/26/17 13:57 O2 Sat (%) 99 05/26/17 13:57 O2 Delivery Mode Room Air Allergies/Adverse Reactions: No Known Allergies Allergy (Verified 05/26/17 13:56) Home Medications: Medication Instructions Recorded Citalopram Hydrobromide 40 mg PO DAILY 05/26/17 [Citalopram HBr] Pantoprazole Sodium [Protonix 40mg 40 mg PO DAILY 05/26/17 (*)] oxyCODONE/APAP 5/325 [Percocet 1 - 2 tab PO Q6H PRN 05/26/17 5/325 (*)] Acetaminophen [Tylenol 325mg (*)] 650 mg PO Q4HRS PRN #0 tab 05/27/17 Dicyclomine [Bentyl 10 MG (*)] 20 mg PO QID PRN #30 cap 05/27/17 Ondansetron Odt [Zofran Odt 4 mg 4 - 8 mg PO Q4HRS PRN #30 tab 05/27/17 (*)] Promethazine HCl [Phenergan 25mg 12.5 mg PO Q6HRS PRN #15 tab 05/27/17 (*)] Medical Decision Making ED Course/Re-evaluation: Labs, urinalysis, CT abdominal and pelvis scan, IV fluids, IV medication Given 2 L normal saline bolus IV Protonix, IV Ativan and IV promethazine Reassessed at 3:15 p.m., no episodes of emesis since arrival to the ER. But still complaining of nausea. Given Compazine and Benadryl. Reassessed at 3:30 p.m. and patient had no complaints of nausea vomiting abdominal pain. offered water. Went for abdominal CT scan. Reassessed at 4:30 p.m. upon return of CT exam that shows no acute intra- abdominal process. The patient now complains of nausea with some dry heaves and epigastric pain. Discussed with the patient needing to hospital for intractable nausea and vomiting patient has refused requesting "1 more rounds of meds before admission." Given IV Haldol and GI cocktail No signs of anemia electrolyte imbalance or acute kidney injury. Mild leukocytosis is noted which is likely reactive. Afebrile. no systemic signs 1655 ED decision to consult for admission with hospitalist, Dr. Starr, for intractable nausea and vomiting not relieved by multiple rounds of medications. (Bernadette Engle) Differential Diagnosis: Abdominal pain including but not limited to appendicitis, cholecystitis, gastritis and urinary tract infection. (Bernadette Engle) - Data Points Laboratory Results: Laboratory Results 05/26/17 14:25 05/26/17 14:25 Medications Given: Discontinued Medications Al Hydroxide/Mg Hydroxide (Maalox Susp) 30 ml PO ONCE ONE Stop: 05/26/17 16:30 Last Admin: 05/26/17 17:05 Dose: 30 ml Citalopram Hydrobromide (Celexa) 40 mg PO DAILY UZIEL Stop: 11/23/17 08:59 Last Admin: 05/27/17 08:06 Dose: 40 mg Dicyclomine HCl (Bentyl) 20 mg PO QID PRN PRN Reason: Pain, Severe Stop: 11/22/17 20:59 Last Admin: 05/27/17 09:19 Dose: 20 mg Diphenhydramine HCl (Benadryl Injection) 50 mg IVP EDNOW ONE Stop: 05/26/17 15:14 Last Admin: 05/26/17 15:19 Dose: 50 mg Haloperidol Lactate (Haldol Injection) 2.5 mg IVP EDNOW ONE Stop: 05/26/17 16:29 Last Admin: 05/26/17 17:04 Dose: 2.5 mg Hyoscyamine Sulfate (Levsin, Hyomax-Sl) 0.25 mg PO ONCE ONE Stop: 05/26/17 16:30 Last Admin: 05/26/17 17:05 Dose: 0.25 mg Sodium Chloride (Ns) 2,000 mls @ 0 mls/hr IV EDNOW ONE; Wide Open PRN Reason: Protocol Stop: 05/26/17 14:25 Last Admin: 05/26/17 14:43 Dose: 2,000 mls Pantoprazole Sodium 40 mg/ (Sodium Chloride) 100 mls @ 200 mls/hr IV EDNOW ONE Stop: 05/26/17 14:55 Last Admin: 05/26/17 15:18 Dose: 100 mls Sodium Chloride (Ns) 1,000 mls @ 200 mls/hr IV CONT UZIEL Stop: 11/22/17 17:44 Last Admin: 05/27/17 08:32 Dose: 1,000 mls Lidocaine (Lidocaine 2% Viscous) 15 ml PO ONCE ONE Stop: 05/26/17 16:30 Last Admin: 05/26/17 17:05 Dose: 15 ml Lorazepam (Ativan Injection) 1 mg IVP EDNOW ONE Stop: 05/26/17 14:27 Last Admin: 05/26/17 14:42 Dose: 1 mg Ondansetron HCl (Zofran) 4 - 8 mg IVP Q4HRS PRN PRN Reason: Nausea/Vomiting, Can't Take PO Stop: 11/22/17 17:42 Last Admin: 05/26/17 23:25 Dose: 4 mg Ondansetron HCl (Zofran Odt) 4 - 8 mg PO Q4HRS PRN PRN Reason: Nausea/Vomiting, Use 1st Stop: 11/22/17 17:42 Last Admin: 05/27/17 08:06 Dose: 4 mg Pantoprazole Sodium (Protonix) 40 mg PO DAILY UZIEL Stop: 11/23/17 08:59 Last Admin: 05/27/17 08:05 Dose: 40 mg Prochlorperazine Maleate (Compazine) 10 mg PO EDNOW ONE Stop: 05/26/17 15:14 Last Admin: 05/26/17 15:57 Dose: 10 mg Promethazine HCl (Phenergan) 12.5 mg IVP EDNOW ONE Stop: 05/26/17 14:26 Last Admin: 05/26/17 14:42 Dose: 12.5 mg Promethazine HCl (Phenergan) 6.25 - 25 mg IVP Q6HRS PRN PRN Reason: Nausea/Vomiting, Use 2nd Stop: 11/22/17 17:42 Last Admin: 05/27/17 04:12 Dose: 25 mg Departure - Departure Disposition: [facility] Clinical Impression: Intractable cyclical vomiting with nausea Condition: Good
[2017-05-26 14:34] LABS: % IMMATURE GRANULYOCYTES 0.4 % (0.0-1.1); ABSOLUTE IMMATURE GRANULOCYTES 0.05 10^3/uL (0.00-0.10); ADD DIFF? NO; ADD MORPH? NO; ADD SCAN? NO; ATYPICAL LYMPHOCYTE FLAG 0 (0-99); FRAGMENT RBC FLAG 0 (0-99); HEMATOCRIT 46.9 % (40.0-51.0); HEMOGLOBIN 16.5 g/dL (13.7-17.5); LEFT SHIFT FLG 0 (0-99); LIPEMIA HEMOLYSIS FLAG 90 (0-99); MEAN CELL HEMOGLOBIN CONCENTR. 35.2 g/dL (32.4-36.7); MEAN CELL VOLUME 88.2 fL (81.5-99.8); MEAN PLATELET VOLUME 11.2 fL (8.7-11.7); PLATELET CLUMPS FLAG 10 (0-99); PLATELET COUNT 283 10^3/uL (150-400); RED BLOOD CELL COUNT 5.32 10^6/uL (4.40-6.38); RED CELL DISTRIBUTION WIDTH 12.1 % (11.5-15.2)
[2017-05-26 14:52] LABS: ALANINE AMINOTRANSFERASE 41 IU/L (21-72); ALBUMIN 5.4 g/dL (3.5-5.0); ALKALINE PHOSPHATASE 108 IU/L (38-126); ANION GAP 20 mEq/L (8-16); ASPARTATE AMINOTRANSFERASE 43 IU/L (17-59); BILIRUBIN,TOTAL 1.2 mg/dL (0.1-1.4); CALCIUM 10.5 mg/dL (8.5-10.4); CARBON DIOXIDE 15 mEq/l (22-31); CHLORIDE 104 mEq/L (97-110); GLOMERULAR FILTRATION RATE > 60; GLUCOSE 113 mg/dL (70-100); MAGNESIUM 1.6 mg/dL (1.6-2.3); POTASSIUM 4.2 mEq/L (3.5-5.2); SODIUM 139 mEq/L (134-144)
[2017-05-26] MEDS ORDERED: IOPAMIDOL (ISOVUE-300) 100 ML BTL ONE (15:05)
[2017-05-26] MEDS ORDERED: PROCHLORPERAZINE MALEATE 10 MG TAB PO ONE (15:13)
[2017-05-26] MEDS ORDERED: HALOPERIDOL LACT 5 MG/ML INJ IVP ONE (16:28)
[2017-05-26] MEDS ORDERED: MAG HYDROX/AL HYDROX/SIMETH 30 ML UDCUP PO ONE (16:29)
[2017-05-26] MEDS ORDERED: LIDOCAINE 2% VISCOUS 15 ML UDCUP PO ONE (16:29)
[2017-05-26] MEDS ORDERED: HYOSCYAMINE SULFATE 0.125 MG TAB PO ONE (16:29)
[2017-05-26] MEDS ORDERED: diphenhydrAMINE 25 MG CAP PO PRN (17:43)
[2017-05-26] MEDS ORDERED: PROMETHAZINE HCL 25 MG TAB PO PRN (17:43)
[2017-05-26] MEDS ORDERED: ONDANSETRON DISINTEGRATING 4 MG TAB PO PRN (17:43)
[2017-05-26] MEDS ORDERED: ACETAMINOPHEN 325 MG TAB PO PRN (17:43)
[2017-05-26] MEDS ORDERED: ONDANSETRON 4 MG/2 ML VIAL IVP PRN (17:43)
[2017-05-26] MEDS ORDERED: OXYCODONE/APAP 5/325 TAB PO PRN (17:46)
[2017-05-26] MEDS ORDERED: HALOPERIDOL LACT 5 MG/ML INJ IVP PRN (17:48)
[2017-05-26] MEDS ORDERED: MBX SOLN 30 ML BOTTLE PO PRN (17:49)
[2017-05-26] MEDS ORDERED: DICYCLOMINE 20 MG TAB PO PRN (18:24)
--- NOTE | 2017-05-26 18:29 | PDGENHP ---
History and Physical - Chief Complaint Acute abdominal pain - History of Present Illness Primary care provider: Dr. Braun Primary final operations technician: Dr. Green HPI: 36-year-old male presenting with acute abdominal pain characterized as 10/ 10 severe pain located in the mid epigastric area with associated nausea and vomiting with onset of symptoms on the morning of presentation. The patient reports that he awoke with the abdominal pain, suddenly, it was somewhat alleviated by showering and having some Tea. He does not use any marijuana on the morning of this presentation. His last use was the day prior to this presentation. He reports that the pain temporarily was alleviated, then returned after discharge. He reports that the character is very similar to previous bouts of what has been described to him as cyclic vomiting syndrome in the setting of marijuana use. Of note, the patient has also not been taking his proton pump inhibitor recently. He has Percocet available at home for previous foot injury, and he is only taking it once recently, for recurrent foot pain. He does not currently have any antiemetic medications available at home. He has been taking his Celexa as prescribed by his primary care provider. His primary care provider has been prescribing this medication specifically for his chronic abdominal pain and vomiting issue. History Information - Allergies/Home Medication List Allergies/Adverse Reactions: No Known Allergies Allergy (Verified 05/26/17 13:56) Home Medications: Citalopram Hydrobromide [Citalopram HBr] 40 mg PO DAILY 05/26/17 [Last Taken 09/29 08:00] Pantoprazole Sodium [Protonix 40mg (*)] 40 mg PO DAILY 05/26/17 [Last Taken Unknown] oxyCODONE/APAP 5/325 [Percocet 5/325 (*)] 1 - 2 tab PO Q6H PRN 05/26/17 [Last Taken 05/22/17 2 TABS] I have personally reviewed and updated: family history, medical history, social history, surgical history - Past Medical History Additional medical history: Cyclic vomiting syndrome/cannabis hyperemesis syndrome. Esophagitis. Anxiety disorder - Surgical History Additional surgical history: 02/07/[address] Andrew Green demonstrating GE junction esophagitis. Rhinoplasty - Family History Additional family history: No family history of abdominal issues or colon cancer - Social History Smoking Status: Current some day smoker Alcohol Use: Occasionally Drug Use: Marijuana Additional social history: Independent in his ADLs Review of Systems ROS: 10pt was reviewed & negative except for what was stated in HPI & below Gastrointestinal: Reports: vomitting, abdominal pain, diarrhea, nausea Physical Exam Temp Pulse Resp BP Pulse Ox 36.8 C 60 16 122/61 H 100 05/26/17 18:21 05/26/17 18:21 05/26/17 18:21 05/26/17 18:21 05/26/17 18:21 Constitutional: no apparent distress, uncomfortable, No not in pain (Moderate pain), No chronically ill appearing Eyes: PERRL, anicteric sclera, EOMI Ears, Nose, Mouth, Throat: moist mucous membranes, hearing normal, ears appear normal, no oral mucosal ulcers Cardiovascular: regular rate and rhythym, no murmur, rub, or gallop, No edema Respiratory: no respiratory distress, no rales or rhonchi, clear to auscultation Gastrointestinal: no palpable masses, tenderness (In the mid epigastric area, moderate to moderate palpation), No normoactive bowel sounds (Hypoactive bowel sounds), No guarding, No rebound, No distension Genitourinary: no bladder fullness, no bladder tenderness Skin: No rash (No abrasions or ecchymosis over the abdomen) Neurologic: AAOx3, No weakness (Motor strength 5/5 bilateral lower extremities) Psychiatric: not anxious, flat affect, other (Cooperative and follows commands) , No agitated Lab Data & Imaging Review 05/26/17 14:25 05/26/17 14:25 WBC 12.28 10^3/uL (3.80-9.50) H 05/26/17 14:25 RBC 5.32 10^6/uL (4.40-6.38) 05/26/17 14:25 Hgb 16.5 g/dL (13.7-17.5) 05/26/17 14:25 Hct 46.9 % (40.0-51.0) 05/26/17 14:25 MCV 88.2 fL (81.5-99.8) 05/26/17 14:25 MCH 31.0 pg (27.9-34.1) 05/26/17 14:25 MCHC 35.2 g/dL (32.4-36.7) 05/26/17 14:25 RDW 12.1 % (11.5-15.2) 05/26/17 14:25 Plt Count 283 10^3/uL (150-400) 05/26/17 14:25 MPV 11.2 fL (8.7-11.7) 05/26/17 14:25 Neut % (Auto) 63.5 % (39.3-74.2) 05/26/17 14:25 Lymph % (Auto) 25.5 % (15.0-45.0) 05/26/17 14:25 Chase % (Auto) 6.4 % (4.5-13.0) 05/26/17 14:25 Eos % (Auto) 3.0 % (0.6-7.6) 05/26/17 14:25 Baso % (Auto) 1.2 % (0.3-1.7) 05/26/17 14:25 Nucleat RBC Rel Count 0.0 % (0.0-0.2) 05/26/17 14:25 Absolute Neuts (auto) 7.79 10^3/uL (1.70-6.50) H 05/26/17 14:25 Absolute Lymphs (auto) 3.13 10^3/uL (1.00-3.00) H 05/26/17 14:25 Absolute Monos (auto) 0.79 10^3/uL (0.30-0.80) 05/26/17 14:25 Absolute Eos (auto) 0.37 10^3/uL (0.03-0.40) 05/26/17 14:25 Absolute Basos (auto) 0.15 10^3/uL (0.02-0.10) H 05/26/17 14:25 Absolute Nucleated RBC 0.00 10^3/uL (0-0.01) 05/26/17 14:25 Immature Gran % 0.4 % (0.0-1.1) 05/26/17 14:25 Immature Gran # 0.05 10^3/uL (0.00-0.10) 05/26/17 14:25 Sodium 139 mEq/L (134-144) 05/26/17 14:25 Potassium 4.2 mEq/L (3.5-5.2) 05/26/17 14:25 Chloride 104 mEq/L (97-110) 05/26/17 14:25 Carbon Dioxide 15 mEq/l (22-31) L 05/26/17 14:25 Anion Gap 20 mEq/L (8-16) H 05/26/17 14:25 BUN 14 mg/dL (7-23) 05/26/17 14:25 Creatinine 1.0 mg/dL (0.7-1.3) 05/26/17 14:25 Estimated GFR > 60 05/26/17 14:25 Glucose 113 mg/dL (70-100) H 05/26/17 14:25 Calcium 10.5 mg/dL (8.5-10.4) H 05/26/17 14:25 Magnesium 1.6 mg/dL (1.6-2.3) 05/26/17 14:25 Total Bilirubin 1.2 mg/dL (0.1-1.4) 05/26/17 14:25 AST 43 IU/L (17-59) 05/26/17 14:25 ALT 41 IU/L (21-72) 05/26/17 14:25 Alkaline Phosphatase 108 IU/L (38-126) 05/26/17 14:25 Total Protein 9.0 g/dL (6.3-8.2) H 05/26/17 14:25 Albumin 5.4 g/dL (3.5-5.0) H 05/26/17 14:25 Lipase 258.0 IU/L (23-300) 05/26/17 14:25 Visualized and Interpreted imaging results: Yes Interpretation: Abdominal CT demonstrating no appendicitis, no constipation Assessment & Plan Assessment: 36-year-old male presenting with acute on chronic abdominal pain and vomiting, with resultant acute metabolic acidosis Plan: 1. Abdominal pain. Acute on chronic, new problem this provider, further workup indicated. Most likely secondary to a combination of cyclic vomiting/cannabis hyperemesis syndrome with resultant vomiting and esophagitis, not currently treating appropriately with proton pump inhibitor. -reviewed outside records including 02/07/[address] Andrew Green, describing patient's esophagitis at the GE junction, recommended proton pump inhibitor, negative H pylori test -order outside records from [facility], including discharge summary of patient's only inpatient hospitalization for this issue -give IV PPI now, repeat oral dosing in a.m. -give GI cocktail -antiemetics, full strength -discussed with Bernadette Engle, emergency department provider, we agreed the patient should avoid narcotic medications for this issue -utilize Bentyl for pain management, as well as Tylenol -recommend hot shower and Tea when able to tolerate oral intake 2. Metabolic acidosis. Acute, new problem this provider, further workup indicated. Anion gap, secondary to sodium bicarbonate losses -give high rate IV fluids -recheck serum chemistries in a.m. -monitor urine output 3. Leukocytosis. Most likely secondary to above, repeat CBC in a.m. Diet. Clear liquids, advanced in a.m. if tolerating well Prophylaxis. Low risk patient, SCDs Code. Full Disposition. Anticipated discharge is 05/27/2017, pending stabilization of issues outlined above.
[2017-05-26] MEDS: NS 1,000 ML IV SCH ×2 (18:33→23:25)
[2017-05-26 19:34] LABS: COLOR YELLOW; LEUKOCYTE ESTERASE,URINE NEGATIVE (NEGATIVE); NITRITE,URINE NEGATIVE (NEGATIVE)
[2017-05-26] MEDS: DICYCLOMINE 10 MG CAP PO PRN (21:29)
[2017-05-26] MEDS: PROMETHAZINE HCL 25 MG/ML INJ IVP PRN (21:29)
[2017-05-27] MEDS: PROMETHAZINE HCL 25 MG/ML INJ IVP PRN (04:12)
[2017-05-27] MEDS: NS 1,000 ML IV SCH ×2 (04:13→08:32)
[2017-05-27] MEDS: DICYCLOMINE 10 MG CAP PO PRN ×2 (04:13→09:19)
[2017-05-27 04:31] LABS: % IMMATURE GRANULYOCYTES 0.3 % (0.0-1.1); ABSOLUTE IMMATURE GRANULOCYTES 0.03 10^3/uL (0.00-0.10); ADD DIFF? NO; ADD MORPH? NO; ADD SCAN? NO; ATYPICAL LYMPHOCYTE FLAG 0 (0-99); FRAGMENT RBC FLAG 0 (0-99); HEMATOCRIT 42.3 % (40.0-51.0); HEMOGLOBIN 14.5 g/dL (13.7-17.5); LEFT SHIFT FLG 0 (0-99); LIPEMIA HEMOLYSIS FLAG 90 (0-99); MEAN CELL HEMOGLOBIN CONCENTR. 34.3 g/dL (32.4-36.7); MEAN CELL VOLUME 90.6 fL (81.5-99.8); MEAN PLATELET VOLUME 11.3 fL (8.7-11.7); PLATELET CLUMPS FLAG 0 (0-99); PLATELET COUNT 219 10^3/uL (150-400); RED BLOOD CELL COUNT 4.67 10^6/uL (4.40-6.38); RED CELL DISTRIBUTION WIDTH 12.3 % (11.5-15.2)
[2017-05-27 04:48] LABS: ANION GAP 12 mEq/L (8-16); CARBON DIOXIDE 18 mEq/l (22-31); CHLORIDE 107 mEq/L (97-110); GLOMERULAR FILTRATION RATE > 60; GLUCOSE 104 mg/dL (70-100); MAGNESIUM 1.8 mg/dL (1.6-2.3); POTASSIUM 4.2 mEq/L (3.5-5.2); SODIUM 137 mEq/L (134-144)
[2017-05-27 08:45] VITALS: O2SAT 98
[2017-05-27] MEDS ORDERED: CITALOPRAM 20 MG TAB PO SCH (09:00)
[2017-05-27] MEDS ORDERED: PANTOPRAZOLE SODIUM 40 MG TAB PO SCH (09:00)
[2017-05-27] MEDS ORDERED: NON-FORMULARY NEW DRUG (Citalopram Hydrobromide [Citalopram Hbr] 40 MG) PO SCH (09:00)
[2017-05-27 12:00] VITALS: BP 148/85; PULSE 75; RESP 16; TEMP 97.7
--- NOTE | 2017-05-27 14:46 | PDDCSUM ---
Discharge Summary Discharge Summary: Dates of service 05/26-05/27/17 Discharge dx: # cyclic vomiting # abdominal pain # esophagitis/gastritis # metabolic acidosis Procedures: abdominal CT Consultations none Hospital course by problem: # cyclic vomiting syndrome: has been diagnosed with this in the past with prior extensive w/u including egd, ct on this hospitalization wnl as well. In setting of heavy MJ use and likely related to same. Improved with symptomatic management. # abdominal pain: in setting of persistent n/v as above # esophagitis/gastritis: continue ppi # metabolic acidosis: resolved Dispo: dc home f/u with PCP Kade
== END 2017-05-27 15:50 | disposition home or self-care (01) ==
LOC: F3N 18:09
PROVIDERS: ADMIT Internal Medicine; ATTEND Internal Medicine
DX: G43.A0 Cyclical vomiting, in migraine, not intractable (principal); K20.9 Esophagitis, unspecified; K29.70 Gastritis, unspecified, without bleeding; E87.2 Acidosis; Z72.0 Tobacco use
CPT/HCPCS: 74177; G0378; 96365; J1200; J2060; J2405; J2550; Q9967

== ENCOUNTER 2017-05-28 08:34 | Emergency (ER) | payer MEDICAID ==
[2017-05-28 08:42] VITALS: TEMP 97.7
[2017-05-28] MEDS ORDERED: METOCLOPRAMIDE 10 MG/2 ML VIAL IVP ONE (09:03)
[2017-05-28] MEDS ORDERED: HALOPERIDOL LACT 5 MG/ML INJ IVP ONE (09:03)
[2017-05-28] MEDS ORDERED: LIDOCAINE 1% 80 MG in NS 100 ML IV ONE (09:03)
--- NOTE | 2017-05-28 09:07 | EDPHY ---
H & P Stated Complaint: cyclical vomiting seen saturday nc from hospital last night Time Seen by Provider: 05/28/17 08:58 HPI/ROS: CHIEF COMPLAINT: Vomiting abdominal pain HISTORY OF PRESENT ILLNESS: 36-year-old male history of cyclic vomiting, possible history of cannabis hyperemesis syndrome, discharged from the hospital yesterday afternoon for similar exacerbations states that at 4:00 a.m. today he woke with similar abdominal pain, vomiting, retching. Feels similar to prior episodes. No testicular pain. No urinary abnormality. No hematemesis. No melena or hematochezia. No fever or chills. REVIEW OF SYSTEMS: A ten point review of systems was performed and is negative with the exception of the items mentioned in the HPI PAST MEDICAL & SURGICAL HISTORY: Cyclic vomiting SOCIAL HISTORY: Regular marijuana use PHYSICAL EXAM (Prior to examination, patient consented to physical exam, hands were washed and my usual and customary physical exam procedures followed) 1) GENERAL: Well-developed, well-nourished, alert and oriented. Appears uncomfortable, guarding abdomen, audibly retching . 2) HEAD: Normocephalic, atraumatic 3) HEENT: Pupils equal, round, reactive to light bilaterally. Sclera anicteric. Nasopharynx, oropharynx, clear, no lesions. Dry mucous membranes 4) NECK: Full range of motion, no meningeal signs. 5) LUNGS: Clear auscultation bilaterally, no wheezes, no rhonchi, no retractions. 6) HEART: Regular rate and rhythm, no murmur, no heave, no gallop. 7) ABDOMEN: Guarding abdomen, diffusely tender to palpation all quadrants, 8) MUSCULOSKELETAL: No peripheral edema or discoloration. 9) BACK: No CVA tenderness 10) SKIN: No rash, no petechiae. 11) Psychiatric: Patient is oriented X 3, there is no agitation. DIFFERENTIAL DIAGNOSIS: My differential diagnosis includes, but is not limited to, acute appendicitis, acute cholecystitis, bowel obstruction, acute pancreatitis. The patient understands that this diagnosis is provisional and can never be 100% accurate. This is a partial list of diagnoses considered. These considerations are based on history, physical exam, past history and reassessment. - Personal History Current Tetanus/Diphtheria Vaccine: Yes Tetanus Vaccine Date: < 10 YEARS - Medical/Surgical History Hx Asthma: No Hx Chronic Respiratory Disease: No Hx Diabetes: No Hx Cardiac Disease: No Hx Renal Disease: No Hx Cirrhosis: No Hx Alcoholism: No Hx HIV/AIDS: No Hx Splenectomy or Spleen Trauma: No Other PMH: pmh: cyclic vomiting syndrome. psh: rhinoplasty, septoplasty - Social History Smoking Status: Current some day smoker Constitutional: Initial Vital Signs Temperature (C) 36.5 C 05/28/17 08:39 Heart Rate 61 05/28/17 08:39 Respiratory Rate 26 H 05/28/17 08:39 Blood Pressure 131/75 H 05/28/17 08:39 O2 Sat (%) 99 05/28/17 08:39 O2 Delivery Mode Nasal Cannula O2 (L/minute) 2 Allergies/Adverse Reactions: No Known Allergies Allergy (Verified 05/28/17 08:38) Home Medications: Medication Instructions Recorded Citalopram Hydrobromide 40 mg PO DAILY 05/26/17 [Citalopram HBr] Pantoprazole Sodium [Protonix 40mg 40 mg PO DAILY 05/26/17 (*)] oxyCODONE/APAP 5/325 [Percocet 1 - 2 tab PO Q6H PRN 05/26/17 5/325 (*)] Acetaminophen [Tylenol 325mg (*)] 650 mg PO Q4HRS PRN #0 tab 05/27/17 Dicyclomine [Bentyl 10 MG (*)] 20 mg PO QID PRN #30 cap 05/27/17 Ondansetron Odt [Zofran Odt 4 mg 4 - 8 mg PO Q4HRS PRN #30 tab 05/27/17 (*)] Promethazine HCl [Phenergan 25mg 12.5 mg PO Q6HRS PRN #15 tab 05/27/17 (*)] Medical Decision Making ED Course/Re-evaluation: 9:07 a.m.: Old medical records reviewed, patient has discharge from hospital yesterday evening, is that recent CT imaging of his abdomen. At this time will attempt symptomatic control and re-evaluate 9:50 a.m.: Re-evaluation after IV Haldol, Ativan, lidocaine, Reglan. Patient is resting comfortably, quietly, nausea and retching resolved. 10:30 a.m.: Re-evaluation patient resting comfortably 10:40 a.m.: Re-evaluation, he is sleeping, easily woken, he has tolerated oral intake. I re-examined his abdomen which is soft no guarding no rebound. I am unable to elicit any abdominal pain on exam. I think that acute surgical abdominal pathology such as acute appendicitis, bowel obstruction, less than likely in this patient at this time. He would like to be discharged. Given usual and customary abdominal precautions instructions - Data Points Laboratory Results: Laboratory Results 05/28/17 09:00 05/28/17 09:00 05/28/17 05/28/17 09:00 09:00 WBC 11.52 10^3/uL H 10^3/uL (3.80-9.50) RBC 4.98 10^6/uL 10^6/uL (4.40-6.38) Hgb 15.4 g/dL g/dL (13.7-17.5) Hct 44.9 % % (40.0-51.0) MCV 90.2 fL fL (81.5-99.8) MCH 30.9 pg pg (27.9-34.1) MCHC 34.3 g/dL g/dL (32.4-36.7) RDW 12.6 % % (11.5-15.2) Plt Count 260 10^3/uL 10^3/uL (150-400) MPV 11.5 fL fL (8.7-11.7) Neut % (Auto) 76.4 % H % (39.3-74.2) Lymph % (Auto) 16.0 % % (15.0-45.0) [place] % (Auto) 5.4 % % (4.5-13.0) Eos % (Auto) 1.0 % % (0.6-7.6) Baso % (Auto) 0.6 % % (0.3-1.7) Nucleat RBC Rel Count 0.0 % % (0.0-0.2) Absolute Neuts (auto) 8.81 10^3/uL H 10^3/uL (1.70-6.50) Absolute Lymphs (auto) 1.84 10^3/uL 10^3/uL (1.00-3.00) Absolute Monos (auto) 0.62 10^3/uL 10^3/uL (0.30-0.80) Absolute Eos (auto) 0.11 10^3/uL 10^3/uL (0.03-0.40) Absolute Basos (auto) 0.07 10^3/uL 10^3/uL (0.02-0.10) Absolute Nucleated RBC 0.00 10^3/uL 10^3/uL (0-0.01) Immature Gran % 0.6 % % (0.0-1.1) Immature Gran # 0.07 10^3/uL 10^3/uL (0.00-0.10) Sodium 142 mEq/L mEq/L (134-144) Potassium 4.1 mEq/L mEq/L (3.5-5.2) Chloride 104 mEq/L mEq/L (97-110) Carbon Dioxide 18 mEq/l L mEq/l (22-31) Anion Gap 20 mEq/L H mEq/L (8-16) BUN 10 mg/dL mg/dL (7-23) Creatinine 1.1 mg/dL mg/dL (0.7-1.3) Estimated GFR > 60 Glucose 125 mg/dL H mg/dL (70-100) Calcium 10.1 mg/dL mg/dL (8.5-10.4) Total Bilirubin 0.9 mg/dL mg/dL (0.1-1.4) Conjugated Bilirubin 0.3 mg/dL mg/dL (0.0-0.5) Unconjugated Bilirubin 0.6 mg/dL mg/dL (0.0-1.1) AST 40 IU/L IU/L (17-59) ALT 30 IU/L IU/L (21-72) Alkaline Phosphatase 101 IU/L IU/L (38-126) Total Protein 8.0 g/dL g/dL (6.3-8.2) Albumin 5.0 g/dL g/dL (3.5-5.0) Lipase 275 IU/L IU/L (23-300) Medications Given: Discontinued Medications Diphenhydramine HCl (Benadryl Injection) 25 mg IVP EDNOW ONE Stop: 05/28/17 09:04 Last Admin: 05/28/17 09:16 Dose: 25 mg Haloperidol Lactate (Haldol Injection) 2.5 mg IVP EDNOW ONE Stop: 05/28/17 09:04 Last Admin: 05/28/17 09:15 Dose: 2.5 mg Lidocaine HCl 80 mg/ Sodium (Chloride) 108 mls @ 600 mls/hr IV EDNOW ONE Stop: 05/28/17 09:13 Last Admin: 05/28/17 09:25 Dose: 108 mls Lorazepam (Ativan Injection) 1 mg IVP EDNOW ONE Stop: 05/28/17 09:35 Last Admin: 05/28/17 09:40 Dose: 1 mg Metoclopramide HCl (Reglan Injection) 10 mg IVP EDNOW ONE Stop: 05/28/17 09:04 Last Admin: 05/28/17 09:17 Dose: 10 mg Departure - Departure Disposition: Home, Routine, Self-Care Clinical Impression: Nausea & vomiting Qualifiers: Vomiting type: cyclical vomiting Vomiting Intractability: non-intractable Qualified Code(s): G43.A0 - Cyclical vomiting, not intractable Condition: Good Instructions: Acute Nausea and Vomiting (ED) Additional Instructions: Return to the emergency department if you developed inability to tolerate oral intake, return of your abdominal pain or nausea or vomiting. Referrals: WILFREDO SOSA [Other] - 1 day without fail
[2017-05-28 09:18] LABS: % IMMATURE GRANULYOCYTES 0.6 % (0.0-1.1); ABSOLUTE IMMATURE GRANULOCYTES 0.07 10^3/uL (0.00-0.10); ADD DIFF? NO; ADD MORPH? NO; ADD SCAN? NO; ATYPICAL LYMPHOCYTE FLAG 0 (0-99); FRAGMENT RBC FLAG 0 (0-99); HEMATOCRIT 44.9 % (40.0-51.0); HEMOGLOBIN 15.4 g/dL (13.7-17.5); LEFT SHIFT FLG 0 (0-99); LIPEMIA HEMOLYSIS FLAG 90 (0-99); MEAN CELL HEMOGLOBIN 30.9 pg (27.9-34.1); MEAN CELL HEMOGLOBIN CONCENTR. 34.3 g/dL (32.4-36.7); MEAN CELL VOLUME 90.2 fL (81.5-99.8); MEAN PLATELET VOLUME 11.5 fL (8.7-11.7); PLATELET CLUMPS FLAG 0 (0-99); PLATELET COUNT 260 10^3/uL (150-400); RED BLOOD CELL COUNT 4.98 10^6/uL (4.40-6.38); RED CELL DISTRIBUTION WIDTH 12.6 % (11.5-15.2)
[2017-05-28] MEDS ORDERED: LIDOCAINE 1% 300 MG/30 ML SDV ONE (09:20)
[2017-05-28] MEDS ORDERED: NS 100 ML BAG IV ONE (09:21)
[2017-05-28 09:23] LABS: ALANINE AMINOTRANSFERASE 30 IU/L (21-72); ALKALINE PHOSPHATASE 101 IU/L (38-126); ANION GAP 20 mEq/L (8-16); ASPARTATE AMINOTRANSFERASE 40 IU/L (17-59); BILIRUBIN,TOTAL 0.9 mg/dL (0.1-1.4); BILIRUBIN-CONJUGATED 0.3 mg/dL (0.0-0.5); BILIRUBIN-UNCONJUGATED 0.6 mg/dL (0.0-1.1); CALCIUM 10.1 mg/dL (8.5-10.4); CARBON DIOXIDE 18 mEq/l (22-31); CHLORIDE 104 mEq/L (97-110); CREATININE 1.1 mg/dL (0.7-1.3); GLOMERULAR FILTRATION RATE > 60; GLUCOSE 125 mg/dL (70-100); POTASSIUM 4.1 mEq/L (3.5-5.2); SODIUM 142 mEq/L (134-144)
[2017-05-28] MEDS ORDERED: LORazepam 2 MG/ML INJ IVP ONE (09:34)
[2017-05-28 10:15] VITALS: RESP 16
[2017-05-28 10:54] VITALS: BP 106/65; PULSE 83; O2SAT 94
== END 2017-05-28 10:53 | disposition home or self-care (01) ==
DX: G43.A0 Cyclical vomiting, in migraine, not intractable (principal); F17.200 Nicotine dependence, unspecified, uncomplicated
CPT/HCPCS: 96374; J1200; J2060; J2765

== ENCOUNTER 2017-05-30 10:35 | Emergency (ER) | payer MEDICAID ==
[2017-05-30 10:43] VITALS: TEMP 98.4
--- NOTE | 2017-05-30 10:59 | EDPHY ---
H & P Stated Complaint: Still w/ "stomach pain", n/v;here Saturday for same c/o Time Seen by Provider: 05/30/17 10:37 HPI/ROS: CHIEF COMPLAINT: Abdominal pain , vomiting, retching HISTORY OF PRESENT ILLNESS: This is a 36-year-old male with a history of cyclic vomiting syndrome, history of hospital admission for same, seen in the emergency department most recently by myself 2 days ago for same complaint at which point he was evaluated and treated and released after he was asymptomatic and was able to tolerate oral intake. He returns to the emergency department today complaining of return of nausea, vomiting, retching, abdominal pain which started this morning, feels similar to prior episodes. PCP: Suni REVIEW OF SYSTEMS: A ten point review of systems was performed and is negative with the exception of the items mentioned in the HPI PAST MEDICAL & SURGICAL HISTORY: History of cyclic vomiting possible cannabis hyperemesis SOCIAL HISTORY: Regular marijuana use PHYSICAL EXAM (Prior to examination, patient consented to physical exam, hands were washed and my usual and customary physical exam procedures followed) 1) GENERAL: Well-developed, well-nourished, alert and oriented. Appears uncomfortable, he is audibly retching 2) HEAD: Normocephalic, atraumatic 3) HEENT: Pupils equal, round, reactive to light bilaterally. Sclera anicteric. Dry mucous membranes of the oropharynx 4) NECK: Full range of motion, no meningeal signs. 5) LUNGS: Clear auscultation bilaterally, no wheezes, no rhonchi, no retractions. 6) HEART: Regular rate and rhythm, no murmur, no heave, no gallop. 7) ABDOMEN: guarding abdomen, no focal tenderness, negative McBurney's, negative [place]'s, negative Rovsing's, negative peritoneal sign, 8) MUSCULOSKELETAL: Moving all extremities, no focal areas of tenderness, no obvious trauma. No peripheral edema or discoloration. 9) BACK: No CVA tenderness, no midline vertebral tenderness, no fluctuance, no step-off, no obvious trauma, no visual or palpable abnormality. 10) SKIN: No rash, no petechiae. 11) Psychiatric: Patient is oriented X 3, there is no agitation. DIFFERENTIAL DIAGNOSIS: in no particular order including but not limited to acute appendicitis, acute cholecystitis, bowel obstruction, acute pancreatitis, cyclic vomiting, cannabis hyperemesis - Personal History Tetanus Vaccine Date: < 10 YEARS - Medical/Surgical History Hx Asthma: No Hx Chronic Respiratory Disease: No Hx Diabetes: No Hx Cardiac Disease: No Hx Renal Disease: No Hx Cirrhosis: No Hx Alcoholism: No Hx HIV/AIDS: No Hx Splenectomy or Spleen Trauma: No Other PMH: pmh: cyclic vomiting syndrome. psh: rhinoplasty, septoplasty - Social History Smoking Status: Former smoker Constitutional: Initial Vital Signs Temperature (C) 36.9 C 05/30/17 10:40 Heart Rate 77 05/30/17 10:40 Respiratory Rate 20 05/30/17 10:40 Blood Pressure 143/88 H 05/30/17 10:40 O2 Sat (%) 98 05/30/17 10:40 O2 Delivery Mode Room Air Allergies/Adverse Reactions: No Known Allergies Allergy (Verified 05/30/17 10:40) Home Medications: Medication Instructions Recorded Citalopram Hydrobromide 40 mg PO DAILY 05/26/17 [Citalopram HBr] Pantoprazole Sodium [Protonix 40mg 40 mg PO DAILY 05/26/17 (*)] oxyCODONE/APAP 5/325 [Percocet 1 - 2 tab PO Q6H PRN 05/26/17 5/325 (*)] Acetaminophen [Tylenol 325mg (*)] 650 mg PO Q4HRS PRN #0 tab 05/27/17 Dicyclomine [Bentyl 10 MG (*)] 20 mg PO QID PRN #30 cap 05/27/17 Ondansetron Odt [Zofran Odt 4 mg 4 - 8 mg PO Q4HRS PRN #30 tab 05/27/17 (*)] Promethazine HCl [Phenergan 25mg 12.5 mg PO Q6HRS PRN #15 tab 05/27/17 (*)] Medical Decision Making ED Course/Re-evaluation: 12:10 p.m.: The patient was re-evaluated with serial examinations. I had ordered Haldol in addition to other medications on this patient after initially evaluating him . I was informed by the nurse that he was currently declining Haldol at this time. I had a lengthy discussion with him at this time inquired why he was declining the Haldol and he stated that it did not work. I discussed his prior emergency department visit of 2 days ago at which point he did receive Haldol and at which time I observed him sleeping and tolerating oral intake stating that he was feeling better. At this time he agrees to receive Haldol. 1:25 p.m.: Re-evaluation, he complains of continued pain, nausea. residential property manager has spoke with the patient. he repeatedly requests fentanyl and/or Dilaudid. We discussed alternatives to opioids. Have offered ketamine which he agrees to.Patient weight 80 kg. 2:20 p.m.: Re-evaluation, states that his abdominal pain resolved after the ketamine. Re-examined his abdomen which is soft no distension no guarding no rebound, no McBurney's point pain, negative McBurney's. Is requesting further anti emetic and would like to be discharged home stating that he is feeling improvement. - Data Points Medications Given: Discontinued Medications Diphenhydramine HCl (Benadryl Injection) 25 mg IVP EDNOW ONE Stop: 05/30/17 11:02 Last Admin: 05/30/17 11:14 Dose: 25 mg Haloperidol Lactate (Haldol Injection) 2.5 mg IVP EDNOW ONE Stop: 05/30/17 11:02 Last Admin: 05/30/17 11:27 Dose: Not Given Haloperidol Lactate (Haldol Injection) 2.5 mg IVP EDNOW ONE Stop: 05/30/17 12:14 Last Admin: 05/30/17 12:22 Dose: 2.5 mg Lidocaine HCl 80 mg/ Sodium (Chloride) 108 mls @ 600 mls/hr IV EDNOW ONE Stop: 05/30/17 11:11 Last Admin: 05/30/17 11:33 Dose: 108 mls Sodium Chloride (Ns) 1,000 mls @ 0 mls/hr IV ONCE ONE PRN Reason: Wide Open Stop: 05/30/17 14:04 Last Admin: 05/30/17 14:06 Dose: 1,000 mls Ketamine HCl (Ketamine) 16 mg IVP EDNOW ONE Stop: 05/30/17 13:30 Last Admin: 05/30/17 13:44 Dose: 16 mg Ketorolac Tromethamine (Toradol) 30 mg IVP EDNOW ONE Stop: 05/30/17 11:51 Last Admin: 05/30/17 12:20 Dose: 30 mg Lorazepam (Ativan Injection) 1 mg IVP EDNOW ONE Stop: 05/30/17 11:03 Last Admin: 05/30/17 11:14 Dose: 1 mg Metoclopramide HCl (Reglan Injection) 10 mg IVP EDNOW ONE Stop: 05/30/17 11:02 Last Admin: 05/30/17 11:15 Dose: 10 mg Departure - Departure Disposition: Home, Routine, Self-Care Clinical Impression: Cyclic vomiting syndrome Qualifiers: Vomiting Intractability: non-intractable Nausea presence: with nausea Qualified Code(s): G43.A0 - Cyclical vomiting, not intractable Condition: Good Instructions: Acute Nausea and Vomiting (ED) Additional Instructions: Seek immediate medical attention if you develop new or worsening symptoms, if you develop fevers, chills, inability to tolerate oral intake or any other symptoms that concerns you. Take your Zofran as needed Referrals: WILFREDO SOSA [Other] - 1 day without fail
[2017-05-30] MEDS ORDERED: METOCLOPRAMIDE 10 MG/2 ML VIAL IVP ONE (11:01)
[2017-05-30] MEDS ORDERED: LIDOCAINE 1% 80 MG in NS 100 ML IV ONE (11:01)
[2017-05-30] MEDS ORDERED: HALOPERIDOL LACT 5 MG/ML INJ IVP ONE ×2 (11:01→12:13)
[2017-05-30] MEDS ORDERED: LORazepam 2 MG/ML INJ IVP ONE (11:02)
[2017-05-30] MEDS ORDERED: KETOROLAC 30 MG/1 ML SDV IVP ONE (11:50)
[2017-05-30] MEDS ORDERED: KETAMINE 100 MG/10 ML SYR IVP ONE (13:29)
[2017-05-30] MEDS ORDERED: NS 1,000 ML IV ONE (14:03)
[2017-05-30] MEDS ORDERED: ONDANSETRON 4 MG/2 ML VIAL IVP ONE (14:20)
[2017-05-30 15:47] VITALS: BP 118/53; PULSE 54; RESP 18; O2SAT 96
== END 2017-05-30 16:14 | disposition home or self-care (01) ==
DX: G43.A0 Cyclical vomiting, in migraine, not intractable (principal); Z87.891 Personal history of nicotine dependence
CPT/HCPCS: 96374; J1200; J1885; J2060; J2405; J2765

== ENCOUNTER → 2017-08-01 | Outpatient (CLI) | payer MEDICAID | LOC: FIMAGING 18:46 | PROVIDERS: ATTEND Psychiatry & Neurology Neurology | DX: M50.91 Cervical disc disorder, unspecified, high cervical region (principal); M50.921 Unspecified cervical disc disorder at C4-C5 level; M50.922 Unspecified cervical disc disorder at C5-C6 level ==

== ENCOUNTER 2017-10-01 19:53 | Emergency (ER) | payer MEDICAID ==
--- NOTE | 2017-10-01 19:57 | EDPHY ---
H & P Time Seen by Provider: 10/01/17 19:53 HPI/ROS: CHIEF COMPLAINT: Nausea and vomiting HISTORY OF PRESENT ILLNESS: Patient is a history of cyclic vomiting syndrome and cannabis hyperemesis with last admission May 26 of this year. He presents with symptoms since last Saturday with multiple episodes of nausea vomiting and abdominal pain. Symptoms are severe but not associated with coffee -ground emesis or hematemesis. He has severe abdominal pain which is diffuse and crampy and identical to previous episodes of cyclic vomiting syndrome. Last marijuana 5 days ago. Occasional alcohol, none recently. A little bit of diarrhea. No recent fall injury or trauma. REVIEW OF SYSTEMS: Eye: no change in vision ENT: no sore throat Cardiac: no chest pain or syncope Pulmonary: no cough or SOB Abdomen: HPI Musculoskeletal: no back pain Skin: no rash Neuro: no headache Constitutional: no fever : no urinary symptoms A comprehensive 10 point review of systems is otherwise negative aside from elements mentioned in the history of present illness. PAST MEDICAL HISTORY: History and physical dated 05/26/2017 personally reviewed. Includes cyclic vomiting syndrome, esophagitis, anxiety disorder. 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 Rhinoplasty. Social history: Occasional alcohol, tobacco and marijuana smoker General Appearance: Alert, restless, standing hunched over at the side of the bed. Eyes: No scleral icterus. ENT, Mouth: Dry mucous membranes Respiratory: Normal respiratory effort, breath sounds equal, lungs are clear to auscultation. Cardiovascular: Regular rate and rhythm. Gastrointestinal: Abdomen is soft and non tender. No rebound or guarding. Neurological: Alert, follows commands. Normally conversant. Face symmetric, normal movement and sensation in all extremities. Skin: Warm and dry, no rashes. Musculoskeletal: No peripheral edema and no joint swelling. Psychiatric: Anxious, mildly agitated. Hyperventilating. Emergency Department course/MDM: EKG shows normal QT. IV Zofran 4 mg, Haldol 2.5 mg, Ativan 2 mg. Normal saline 2 L IV. Labs to include lipase LFTs and chemistry. Symptoms are identical to previous episodes of cyclic vomiting syndrome, not highly suspicious for acute surgical process. 2042: Labs reviewed, CO2 15 consistent with dehydration. Calm at this time, doing better, no longer hyperventilating or vomiting. 2126: Patient feels better, able to tolerate oral fluids, wants to be discharged. Smoking Status: Former smoker Constitutional: Initial Vital Signs Temperature (C) 36.6 C 10/01/17 19:55 Heart Rate 72 10/01/17 19:55 Respiratory Rate 18 10/01/17 19:55 Blood Pressure 150/103 H 10/01/17 19:55 O2 Sat (%) 98 10/01/17 19:55 O2 Delivery Mode Room Air Allergies/Adverse Reactions: No Known Allergies Allergy (Verified 10/01/17 19:58) Home Medications: Medication Instructions Recorded Citalopram Hydrobromide 40 mg PO DAILY 05/26/17 [Citalopram HBr] Pantoprazole Sodium [Protonix 40mg 40 mg PO DAILY 05/26/17 (*)] oxyCODONE/APAP 5/325 [Percocet 1 - 2 tab PO Q6H PRN 05/26/17 5/325 (*)] Acetaminophen [Tylenol 325mg (*)] 650 mg PO Q4HRS PRN #0 tab 05/27/17 Dicyclomine [Bentyl 10 MG (*)] 20 mg PO QID PRN #30 cap 05/27/17 Ondansetron Odt [Zofran Odt 4 mg 4 - 8 mg PO Q4HRS PRN #30 tab 05/27/17 (*)] Promethazine HCl [Phenergan 25mg 12.5 mg PO Q6HRS PRN #15 tab 05/27/17 (*)] Medical Decision Making Differential Diagnosis: Differential considered including but not limited to cyclic vomiting, gastroenteritis, appendicitis, pancreatitis, hepatitis, bowel obstruction. - Data Points Laboratory Results: Laboratory Results 10/01/17 20:05 10/01/17 20:05 10/01/17 10/01/17 20:05 20:05 WBC 14.04 10^3/uL H 10^3/uL (3.80-9.50) RBC 5.39 10^6/uL 10^6/uL (4.40-6.38) Hgb 17.0 g/dL g/dL (13.7-17.5) Hct 46.5 % % (40.0-51.0) MCV 86.3 fL fL (81.5-99.8) MCH 31.5 pg pg (27.9-34.1) MCHC 36.6 g/dL g/dL (32.4-36.7) RDW 12.2 % % (11.5-15.2) Plt Count 317 10^3/uL 10^3/uL (150-400) MPV 10.8 fL fL (8.7-11.7) Neut % (Auto) 62.5 % % (39.3-74.2) Lymph % (Auto) 27.6 % % (15.0-45.0) [place] % (Auto) 7.3 % % (4.5-13.0) Eos % (Auto) 1.3 % % (0.6-7.6) Baso % (Auto) 0.8 % % (0.3-1.7) Nucleat RBC Rel Count 0.0 % % (0.0-0.2) Absolute Neuts (auto) 8.77 10^3/uL H 10^3/uL (1.70-6.50) Absolute Lymphs (auto) 3.88 10^3/uL H 10^3/uL (1.00-3.00) Absolute Monos (auto) 1.03 10^3/uL H 10^3/uL (0.30-0.80) Absolute Eos (auto) 0.18 10^3/uL 10^3/uL (0.03-0.40) Absolute Basos (auto) 0.11 10^3/uL H 10^3/uL (0.02-0.10) Absolute Nucleated RBC 0.00 10^3/uL 10^3/uL (0-0.01) Immature Gran % 0.5 % % (0.0-1.1) Immature Gran # 0.07 10^3/uL 10^3/uL (0.00-0.10) Sodium 141 mEq/L mEq/L (134-144) Potassium 3.9 mEq/L mEq/L (3.5-5.2) Chloride 103 mEq/L mEq/L (97-110) Carbon Dioxide 15 mEq/l L mEq/l (22-31) Anion Gap 23 mEq/L H mEq/L (8-16) BUN 12 mg/dL mg/dL (7-23) Creatinine 1.1 mg/dL mg/dL (0.7-1.3) Estimated GFR > 60 Glucose 150 mg/dL H mg/dL (70-100) Calcium 11.1 mg/dL H mg/dL (8.5-10.4) Phosphorus 3.2 mg/dL mg/dL (2.5-4.5) Total Bilirubin 1.2 mg/dL mg/dL (0.1-1.4) Conjugated Bilirubin 0.3 mg/dL mg/dL (0.0-0.5) Unconjugated Bilirubin 0.9 mg/dL mg/dL (0.0-1.1) AST 33 IU/L IU/L (17-59) ALT 29 IU/L IU/L (21-72) Alkaline Phosphatase 103 IU/L IU/L (38-126) Total Protein 8.7 g/dL H g/dL (6.3-8.2) Albumin 5.3 g/dL H g/dL (3.5-5.0) Lipase 146 IU/L IU/L (23-300) Medications Given: Discontinued Medications Haloperidol Lactate (Haldol Injection) 2.5 mg IV EDNOW ONE Stop: 10/01/17 20:24 Last Admin: 10/01/17 20:37 Dose: 2.5 mg Sodium Chloride (Ns) 1,000 mls @ 0 mls/hr IV EDNOW ONE; Wide Open PRN Reason: Protocol Stop: 10/01/17 20:09 Last Admin: 10/01/17 20:17 Dose: 1,000 mls Sodium Chloride (Ns) 1,000 mls @ 0 mls/hr IV EDNOW ONE; Wide Open PRN Reason: Protocol Stop: 10/01/17 20:09 Last Admin: 10/01/17 20:17 Dose: 1,000 mls Lorazepam (Ativan Injection) 2 mg IVP EDNOW ONE Stop: 10/01/17 20:10 Last Admin: 10/01/17 20:17 Dose: 2 mg Ondansetron HCl (Zofran) 4 mg IVP EDNOW ONE Stop: 10/01/17 20:13 Last Admin: 10/01/17 20:18 Dose: 4 mg Departure - Departure Disposition: Home, Routine, Self-Care Clinical Impression: Nausea and vomiting Qualifiers: Vomiting type: unspecified Vomiting Intractability: non-intractable Qualified Code(s): R11.2 - Nausea with vomiting, unspecified Condition: Good Instructions: Acute Nausea and Vomiting (ED) Referrals: MOCKLER,UNKNOWN [Other] - As per Instructions Andrew Green MD [Medical Doctor] - As per Instructions
[2017-10-01] MEDS ORDERED: NS 1,000 ML IV ONE ×2 (20:08)
[2017-10-01] MEDS ORDERED: LORazepam 2 MG/ML INJ IVP ONE (20:09)
[2017-10-01] MEDS ORDERED: ONDANSETRON 4 MG/2 ML VIAL IVP ONE (20:12)
--- NOTE | 2017-10-01 20:22 | CPEKG ---
Heart Rate: 66 RR Interval: 909 P-R Interval: 156 QRSD Interval: 98 QT Interval: 436 QTC Interval: 457 P [place]: 69 QRS [place]: 53 T Wave [place]: 55 EKG Severity - OTHERWISE NORMAL ECG - EKG Impression: SINUS ARRHYTHMIA, RATE 51-75 Electronically Signed By: David Pat 01-Oct-2017 20:24:16
[2017-10-01] MEDS ORDERED: HALOPERIDOL LACT 5 MG/ML INJ IV ONE (20:23)
[2017-10-01 20:35] LABS: % IMMATURE GRANULYOCYTES 0.5 % (0.0-1.1); ABSOLUTE IMMATURE GRANULOCYTES 0.07 10^3/uL (0.00-0.10); ADD DIFF? NO; ADD MORPH? NO; ADD SCAN? NO; ATYPICAL LYMPHOCYTE FLAG 0 (0-99); FRAGMENT RBC FLAG 0 (0-99); HEMATOCRIT 46.5 % (40.0-51.0); LEFT SHIFT FLG 0 (0-99); LIPEMIA HEMOLYSIS FLAG 90 (0-99); MEAN CELL HEMOGLOBIN 31.5 pg (27.9-34.1); MEAN CELL HEMOGLOBIN CONCENTR. 36.6 g/dL (32.4-36.7); MEAN CELL VOLUME 86.3 fL (81.5-99.8); MEAN PLATELET VOLUME 10.8 fL (8.7-11.7); PLATELET CLUMPS FLAG 0 (0-99); PLATELET COUNT 317 10^3/uL (150-400); RED BLOOD CELL COUNT 5.39 10^6/uL (4.40-6.38); RED CELL DISTRIBUTION WIDTH 12.2 % (11.5-15.2)
[2017-10-01 20:42] LABS: ALANINE AMINOTRANSFERASE 29 IU/L (21-72); ALBUMIN 5.3 g/dL (3.5-5.0); ALKALINE PHOSPHATASE 103 IU/L (38-126); ANION GAP 23 mEq/L (8-16); ASPARTATE AMINOTRANSFERASE 33 IU/L (17-59); BILIRUBIN,TOTAL 1.2 mg/dL (0.1-1.4); BILIRUBIN-CONJUGATED 0.3 mg/dL (0.0-0.5); BILIRUBIN-UNCONJUGATED 0.9 mg/dL (0.0-1.1); CALCIUM 11.1 mg/dL (8.5-10.4); CARBON DIOXIDE 15 mEq/l (22-31); CHLORIDE 103 mEq/L (97-110); CREATININE 1.1 mg/dL (0.7-1.3); GLOMERULAR FILTRATION RATE > 60; GLUCOSE 150 mg/dL (70-100); POTASSIUM 3.9 mEq/L (3.5-5.2); SODIUM 141 mEq/L (134-144); TOTAL PROTEIN 8.7 g/dL (6.3-8.2)
[2017-10-01 21:26] VITALS: BP 110/65; PULSE 88; RESP 16; O2SAT 97
[2017-10-01 21:35] VITALS: TEMP 98.4
== END 2017-10-01 21:35 | disposition home or self-care (01) ==
DX: R11.2 Nausea with vomiting, unspecified (principal); E86.9 Volume depletion, unspecified; Z87.891 Personal history of nicotine dependence
CPT/HCPCS: 96374; J1630; J2060; J2405

== ENCOUNTER 2018-02-05 15:16 | Emergency (ER) | payer MEDICAID ==
[2018-02-05] MEDS ORDERED: METOCLOPRAMIDE 10 MG/2 ML VIAL IVP ONE (15:25)
[2018-02-05] MEDS ORDERED: HALOPERIDOL LACT 5 MG/ML INJ IVP ONE (15:25)
--- NOTE | 2018-02-05 15:28 | EDPHY ---
HPI/HX/ROS/PE/MDM Narrative: CHIEF COMPLAINT: Abdominal pain, nausea HISTORY OF PRESENT ILLNESS: This is a 36-year-old male with a history of cyclic vomiting syndrome, and cannabinoid hyperemesis syndrome with history of hospital admission for same, complaining of abdominal pain and nausea. His current symptoms feel similar to his prior episodes and have been worsening over the past three days. His primary complaint today is pain. He states he does not have any medications to treat his symptoms at home. He denies history of pancreatitis or cholecystitis. No hematemesis or hematochezia. No fever, chills, chest pain, shortness of breath, palpitations, diarrhea, urinary complaints, headache, lightheadedness. Reports warm showers or baths can help his discomfort. REVIEW OF SYSTEMS: Aside from elements discussed in the HPI, a comprehensive 10-point review of systems was reviewed and is negative. PAST MEDICAL HISTORY: Cyclic vomiting. SOCIAL HISTORY: . No alcohol use. Occasional marijuana use. Denies illicit drug use. VITAL SIGNS: Reviewed by me GENERAL: Diaphoretic, appears in pain. Curled in the bed, complaining of pain and nausea. HEENT: Atraumatic. Eyes: No icterus, no injection. Mouth: moist mucous membranes. No erythema or lesions. Neck: supple with no adenopathy. LUNGS: Rapid deep respirations. Clear to auscultation bilaterally, no wheezes, rhonchi or rales. CARDIAC: Regular rate and rhythm, no rubs, murmurs or gallops. ABDOMEN: Soft, no guarding or rebound. Patient reports generalized moderate tenderness throughout. No distension. Bowel sounds normal. BACK: No CVA tenderness. EXTREMITIES: No trauma. No edema. Range of motion is normal throughout. NEURO: Alert and oriented, grossly nonfocal. SKIN: Warm and dry, no rash. PSYCHIATRIC: Normal mentation, no agitation. Portions of this note were transcribed by a medical office scheduler. I personally performed a history, physical exam, medical decision making, and confirmed accuracy of information the transcribed note. ED Course: 37 y/o male presents with abdominal pain and nausea. Plan for EKG, labs including CBC, chemistries, Troponin. IV established. Plan to administer 1L IV NS, 2.5mg IV Haldol, 4mg IV Zofran, and 15.4mg IV Ketamine for symptom relief. Patient declines Benadryl as it makes him feel anxious. 12-LEAD EKG: Please see the full report in [facility]. My interpretation: Sinus arrhythmia, no ischemic changes 16:30 Reassessed patient. Pain has improved but the patient remains nauseous. He continues to hyperventilate. Plan to administer 1mg IV Ativan and 12.5mg IV Phenergan for symptom relief. 17:45 Reassessed patient. He is feeling better and is comfortable with discharge home. Plan to administer an additional 1L IV NS and 15mg IV Toradol prior to discharge. Plan to d/c home in good condition with prescription for Zofran and Phenergan. Follow up and return precautions discussed. He is comfortable with this plan. MDM: Differential diagnosis of the patient's nausea and vomiting was considered including but not limited to cyclic vomiting, cannabinoid hyperemesis syndrome, gastroenteritis, gastritis, alcohol intoxication, withdrawal symptoms, intraabdominal processes including appendicitis, pancreatitis, bowel obstruction and medication side effect. - Data Points Laboratory Results: Laboratory Results 02/05/18 15:45 02/05/18 15:45 02/05/18 02/05/18 02/05/18 15:45 15:45 15:45 WBC 14.45 10^3/uL H 10^3/uL (3.80-9.50) RBC 5.34 10^6/uL 10^6/uL (4.40-6.38) Hgb 16.5 g/dL g/dL (13.7-17.5) Hct 46.5 % % (40.0-51.0) MCV 87.1 fL fL (81.5-99.8) MCH 30.9 pg pg (27.9-34.1) MCHC 35.5 g/dL g/dL (32.4-36.7) RDW 12.0 % % (11.5-15.2) Plt Count 293 10^3/uL 10^3/uL (150-400) MPV 11.6 fL fL (8.7-11.7) Neut % (Auto) 81.7 % H % (39.3-74.2) Lymph % (Auto) 12.5 % L % (15.0-45.0) [place] % (Auto) 4.5 % % (4.5-13.0) Eos % (Auto) 0.1 % L % (0.6-7.6) Baso % (Auto) 0.6 % % (0.3-1.7) Nucleat RBC Rel Count 0.0 % % (0.0-0.2) Absolute Neuts (auto) 11.80 10^3/uL H 10^3/uL (1.70-6.50) Absolute Lymphs (auto) 1.80 10^3/uL 10^3/uL (1.00-3.00) Absolute Monos (auto) 0.65 10^3/uL 10^3/uL (0.30-0.80) Absolute Eos (auto) 0.02 10^3/uL L 10^3/uL (0.03-0.40) Absolute Basos (auto) 0.09 10^3/uL 10^3/uL (0.02-0.10) Absolute Nucleated RBC 0.00 10^3/uL 10^3/uL (0-0.01) Immature Gran % 0.6 % % (0.0-1.1) Immature Gran # 0.09 10^3/uL 10^3/uL (0.00-0.10) Sodium 142 mEq/L mEq/L (135-145) Potassium 4.6 mEq/L mEq/L (3.5-5.2) Chloride 106 mEq/L mEq/L (97-110) Carbon Dioxide 15 mEq/l L mEq/l (22-31) Anion Gap 21 mEq/L H mEq/L (8-16) BUN 11 mg/dL mg/dL (7-23) Creatinine 1.0 mg/dL mg/dL (0.7-1.3) Estimated GFR > 60 Glucose 129 mg/dL H mg/dL (70-100) Calcium 10.5 mg/dL H mg/dL (8.5-10.4) Troponin I < 0.012 ng/mL ng/mL (0.000-0.034) Medications Given: Discontinued Medications Haloperidol Lactate (Haldol Injection) 2.5 mg IVP EDNOW ONE Stop: 02/05/18 15:26 Last Admin: 02/05/18 15:42 Dose: 2.5 mg Sodium Chloride (Ns) 1,000 mls @ 0 mls/hr IV ONCE ONE; Wide Open PRN Reason: Protocol Stop: 02/05/18 15:30 Last Admin: 02/05/18 15:45 Dose: 1,000 mls Sodium Chloride (Ns) 1,000 mls @ 3,000 mls/hr IV ONCE ONE Stop: 02/05/18 18:13 Last Admin: 02/05/18 17:54 Dose: 1,000 mls Ketamine HCl (Ketamine) 15.4 mg 0.2 mg/kg (15.4 mg) IVP EDNOW ONE Stop: 02/05/18 15:40 Last Admin: 02/05/18 16:10 Dose: 15.4 mg Ketorolac Tromethamine (Toradol) 15 mg IVP EDNOW ONE Stop: 02/05/18 17:55 Last Admin: 02/05/18 17:55 Dose: 15 mg Lorazepam (Ativan Injection) 1 mg IVP EDNOW ONE Stop: 02/05/18 16:32 Last Admin: 02/05/18 16:39 Dose: 1 mg Ondansetron HCl (Zofran) 4 mg IVP EDNOW ONE Stop: 02/05/18 15:39 Last Admin: 02/05/18 16:11 Dose: 4 mg Promethazine HCl (Phenergan) 12.5 mg IVP EDNOW ONE Stop: 02/05/18 16:32 Last Admin: 02/05/18 16:40 Dose: 12.5 mg General Time Seen by Provider: 02/05/18 15:23 Initial Vital Signs: Initial Vital Signs Temperature (C) 36.9 C 02/05/18 15:20 Heart Rate 68 02/05/18 15:20 Respiratory Rate 22 H 02/05/18 15:20 Blood Pressure 155/99 H 02/05/18 15:20 O2 Sat (%) 100 02/05/18 15:20 O2 Delivery Mode Room Air Allergies/Adverse Reactions: No Known Allergies Allergy (Verified 02/05/18 15:19) Home Medications: Medication Instructions Recorded Celexa 02/05/18 Ondansetron Odt [Zofran Odt 4 mg 4 mg PO Q6 PRN #8 tab 02/05/18 (RX)] Promethazine HCl [Phenergan 25mg 12.5 - 25 mg PO Q8 PRN #20 tab 02/05/18 (*)] Departure - Departure Disposition: Home, Routine, Self-Care Clinical Impression: Abdominal pain Qualifiers: Abdominal location: generalized Qualified Code(s): R10.84 - Generalized abdominal pain Cyclic vomiting syndrome Qualifiers: Vomiting Intractability: non-intractable Nausea presence: with nausea Qualified Code(s): G43.A0 - Cyclical vomiting, not intractable Nausea & vomiting Qualifiers: Vomiting type: cyclical vomiting Vomiting Intractability: non-intractable Qualified Code(s): G43.A0 - Cyclical vomiting, not intractable Condition: Good Instructions: Acute Nausea and Vomiting (ED) Additional Instructions: Follow up with your primary care provider in 2-3 days. Take Zofran and Phenergan as prescribed as needed for nausea. Please discontinue marijuana use. For your abdominal pain and nausea, I suggested you start with a bland diet and advance as tolerated. This means start with clear liquids such as water, Gatorade, juice, flat non- caffeinated soda. If you tolerate clear liquids, then you may add bland foods such as bananas, rice, or toast. If you do not have any worsening of your symptoms, you may begin to resume a regular diet. Return to the emergency department for uncontrollable vomiting, fever, increasing pain, inability to tolerate liquids by mouth, or other worsening of condition. Referrals: NONE *PRIMARY CARE P,. [Primary Care Provider] - As per Instructions Ramu Del Toro MD [Medical Doctor] - As per Instructions Prescriptions: Ondansetron Odt [Zofran Odt 4 mg (RX)] 4 mg PO Q6 PRN #8 tab PRN Reason: Nausea Promethazine HCl [Phenergan 25mg (*)] 12.5 - 25 mg PO Q8 PRN #20 tab PRN Reason: nausea Report Scribed for: Brigitte Garcia Report Scribed by: Darby Campos Date of Report: 02/05/18 Time of Report: 15:28
[2018-02-05] MEDS ORDERED: NS 1,000 ML IV ONE ×2 (15:29→17:54)
[2018-02-05] MEDS ORDERED: ONDANSETRON 4 MG/2 ML VIAL IVP ONE (15:38)
[2018-02-05] MEDS ORDERED: KETAMINE 200 MG/20 ML VIAL IVP ONE (15:39)
[2018-02-05] MEDS ORDERED: KETAMINE 500 MG/10 ML VIAL ONE (16:03)
[2018-02-05] MEDS ORDERED: HALOPERIDOL LACT 5 MG/ML INJ ONE (16:05)
[2018-02-05 16:11] LABS: PLATELET COUNT 293 10^3/uL (150-400)
[2018-02-05] MEDS ORDERED: PROMETHAZINE HCL 25 MG/ML INJ IVP ONE (16:31)
[2018-02-05] MEDS ORDERED: LORazepam 2 MG/ML INJ IVP ONE (16:31)
[2018-02-05] MEDS ORDERED: KETOROLAC 15 MG/1 ML SDV ONE (17:51)
[2018-02-05] MEDS ORDERED: KETOROLAC 15 MG/1 ML SDV IVP ONE (17:54)
--- NOTE | 2018-02-05 18:05 | CPEKG ---
Heart Rate: 59 RR Interval: 1017 P-R Interval: 144 QRSD Interval: 92 QT Interval: 464 QTC Interval: 460 P [place]: 60 QRS [place]: 53 T Wave [place]: 40 EKG Severity - OTHERWISE NORMAL ECG - EKG Impression: SINUS ARRHYTHMIA, RATE 49-69 Electronically Signed By: Brigitte Garcia 05-Feb-2018 22:32:26
[2018-02-05 18:33] VITALS: BP 144/82
== END 2018-02-05 18:48 | disposition home or self-care (01) ==
DX: R10.84 Generalized abdominal pain (principal); G43.A0 Cyclical vomiting, in migraine, not intractable; E86.9 Volume depletion, unspecified
CPT/HCPCS: 96374; J1200; J1630; J1885; J2060; J2405; J2550; J2765